=== PATIENT | female | born 1960 | race Caucasian/White ===

== ENCOUNTER → 2016-05-06 | Outpatient (CLI) | payer OTHER ==
[~2016-05-06] MED LIST: CALC1CAP36 PO; CALCTAB7 PO; EFF75 PO; EFFSR75 PO; ERGO1CAP35 PO; HYDR-5688 PO; LEVO175T3 PO; LEVO88TA PO; METO-478 PO; METO25TA3 PO; RIVA1TAB4 PO
== END | disposition home or self-care (01) ==
LOC: C.PATHSPEC 13:13
PROVIDERS: ATTEND Obstetrics & Gynecology
DX: N90.89 Other specified noninflammatory disorders of vulva and perineum (principal)

== ENCOUNTER → 2016-09-26 | Outpatient (CLI) | payer OTHER ==
[~2016-09-26] MED LIST changes: -EFF75 PO; -LEVO175T3 PO; -METO-478 PO; +METO1TAB31 PO; -METO25TA3 PO; -RIVA1TAB4 PO
[2016-09-26 17:18] LABS: THYROID STIMULATING HORMONE 1.32 uIu/ml (0.300-4.500)
== END | disposition home or self-care (01) ==
LOC: C.LABBC 12:38
PROVIDERS: ATTEND Internal Medicine Endocrinology, Diabetes & Metabolism
DX: E89.0 Postprocedural hypothyroidism (principal)

== ENCOUNTER → 2016-12-20 | Outpatient (CLI) | payer OTHER ==
[~2016-12-20] MED LIST changes: -CALC1CAP36 PO; -CALCTAB7 PO; +EFF75 PO; -EFFSR75 PO; -ERGO1CAP35 PO; -HYDR-5688 PO; +LEVO175T3 PO; -LEVO88TA PO; -METO1TAB31 PO; +METO25TA3 PO; +RIVA1TAB4 PO
[2016-12-20 13:23] LABS: HEMATOCRIT 38.8 % (37-47); MEAN CELL VOLUME 85.5 fL (80-100); MEAN CORPUSCULAR HEMOGLOBIN 27.3 pg (25-34); MEAN PLATELET VOLUME 9.7 fL (7.4-10.4); PLATELET COUNT 370 K/uL (130-400); RED BLOOD COUNT 4.54 M/uL (4.2-5.4); WHITE BLOOD COUNT 9.92 K/uL (4.8-10.8)
[2016-12-20 13:40] LABS: BLOOD UREA NITROGEN 11 mg/dl (7-18); CALCIUM 8.9 mg/dl (8.5-10.1); CARBON DIOXIDE 29 mmol/L (21-32); CHLORIDE 107 mmol/L (98-107); CREATININE 0.78 mg/dl (0.60-1.20); GLUCOSE 92 mg/dl (70-99); SODIUM 139 mmol/L (136-145)
[2016-12-20 13:50] LABS: THYROID STIMULATING HORMONE 0.061 uIu/ml (0.300-4.500)
[2016-12-21 13:45] LABS: THYROGLOBULIN 0.1 NG/ML (2.8-40.9)
== END | disposition home or self-care (01) ==
LOC: C.LABBC 10:27
PROVIDERS: ATTEND Internal Medicine Endocrinology, Diabetes & Metabolism
DX: C73 Malignant neoplasm of thyroid gland (principal); E89.0 Postprocedural hypothyroidism; I48.0 Paroxysmal atrial fibrillation

== ENCOUNTER → 2017-02-07 | Outpatient (CLI) | payer OTHER ==
[~2017-02-07] MED LIST changes: +FLEC50TA20 PO; +LEVO150T9 PO; +MEDR5TAB PO; +OXYC-57 PO
--- NOTE | 2017-02-11 13:38 | MAMMOGRAPHY REPORT ---
BILATERAL DIGITAL SCREENING MAMMOGRAM TOMOSYNTHESIS WITH CAD: 02/07/2017 CLINICAL HISTORY: Routine screening. Patient has no complaints. TECHNIQUE: Breast tomosynthesis in addition to standard 2D mammography was performed. Current study was also evaluated with a Computer Aided Detection (CAD) system. COMPARISON: Comparison is made to exams dated: 02/02/2016 mammogram, 01/30/2015 mammogram, 4 mammogram, 01/27/2013 mammogram, 10/16/2005 mammogram, and 09/28/2004 mammogram - [facility]. BREAST COMPOSITION: The tissue of both breasts is heterogeneously dense, which may obscure small mas ses. FINDINGS: No suspicious masses, calcifications, or areas of architectural distortion are noted in ei ther breast. There has been no significant interval change compared to prior exams. Circumscribed ma ss with an associated biopsy marker clip in the left 3:00 breast is stable. Benign-appearing left br east calcifications are not significantly changed. IMPRESSION: ACR BI-RADS CATEGORY 2: BENIGN There is no mammographic evidence of malignancy. A 1 year screening mammogram is recommended. The pa tient will receive written notification of the results. Approximately 10% of breast cancers are not detected with mammography. A negative mammographic report should not delay biopsy if a clinically suggestive mass is present. Loni Mcclellan M.D. /:02/07/2017 16:15:58 Charge Operator: Sarai REECE)(M), [facility] letter sent: Normal 1/2 BI-RADS Code: ACR BI-RADS Category 2: Benign
== END | disposition home or self-care (01) ==
LOC: C.MAMM 14:06
PROVIDERS: ATTEND Family Medicine
DX: Z12.31 Encounter for screening mammogram for malignant neoplasm of breast (principal)

== ENCOUNTER → 2017-03-20 | Outpatient (CLI) | payer OTHER ==
[~2017-03-20] MED LIST changes: -FLEC50TA20 PO; -LEVO150T9 PO; -MEDR5TAB PO; -OXYC-57 PO
== END | disposition home or self-care (01) ==
LOC: C.LAB1850 14:02
PROVIDERS: ATTEND Internal Medicine Endocrinology, Diabetes & Metabolism
DX: E89.0 Postprocedural hypothyroidism (principal)

== ENCOUNTER → 2017-03-20 | Outpatient (CLI) | payer OTHER | END | disposition home or self-care (01) | LOC: C.PATHSPEC 17:09 | PROVIDERS: ATTEND Obstetrics & Gynecology | DX: R93.8 Abnormal findings on diagnostic imaging of other specified body structures (principal) ==

== ENCOUNTER 2017-05-02 06:52 | Day surgery (SDC) | payer OTHER ==
[2017-04-25 13:53] VITALS: BMI 40.0
--- NOTE | 2017-04-25 14:28 | PAT Medication Instructions ---
Service Date Apr 25, 2017. Current Home Medication List Flecainide (Tambocor), 25 MG PO QAM Levothyroxine Sodium (Levothyroxine Sodium), 1 TAB PO every other day Levothyroxine Sodium (Levothyroxine Sodium), 1 TAB PO every other day Medroxyprogesterone (Provera), 5 MG PO BID Metoprolol Succ (Toprol Xl) (Toprol-Xl), 25 MG PO QAM Rivaroxaban (Xarelto), 20 MG PO QAM Venlafaxine Hcl (Effexor), 75 MG PO QAM Medication Instructions For Your Scheduled Surgery -Continue as directed: Levothyroxine Sodium (Levothyroxine Sodium), 1 TAB PO every other day Levothyroxine Sodium (Levothyroxine Sodium), 1 TAB PO every other day Rivaroxaban (Xarelto), 20 MG PO QAM (Currently D/C'd, further instructions per cardiology) - Take the following medications the morning of surgery with a sip of water: Flecainide (Tambocor), 25 MG PO QAM Medroxyprogesterone (Provera), 5 MG PO BID Metoprolol Succ (Toprol Xl) (Toprol-Xl), 25 MG PO QAM Venlafaxine Hcl (Effexor), 75 MG PO QAM - Take the following medications as scheduled the night before surgery: Medroxyprogesterone (Provera), 5 MG PO BID If you have any questions please call us at [phone] or [phone] or [phone]
[2017-04-25 15:00] LABS: BASO % 0.4 %; BASO ABS # 0.03 K/uL (0-0.2); EOS % 1.4 %; EOS ABS # 0.12 K/uL (0-0.5); HEMATOCRIT 33.1 % (37-47); HEMOGLOBIN 10.6 g/dL (12.0-16.0); IG# 0.02 K/uL (0.00-0.02); LYMPH % 31.8 %; LYMPH ABS # 2.65 K/uL (1.2-3.4); MEAN CELL VOLUME 81.3 fL (80-100); MONO ABS # 0.58 K/uL (0.11-0.59); NEUT % 59.2 %; NEUT ABS # 4.94 K/uL (1.4-6.5); PLATELET COUNT 394 K/uL (130-400); RED CELL DISTRIBUTION WIDTH CV 13.2 % (11.5-14.5); RED CELL DISTRIBUTION WIDTH SD 39.8 fL (36.4-46.3); WHITE BLOOD COUNT 8.34 K/uL (4.8-10.8)
[2017-04-25 16:33] LABS: CREATININE 0.81 mg/dl (0.60-1.20); POTASSIUM 3.9 mmol/L (3.5-5.1)
[~2017-05-02] VITALS: Ht 172.7 cm; Wt 119.3 kg
[~2017-05-02 06:52] MED LIST changes: +CEFAZOLIN 2000MG IV PUSH 15 ML IV SCH; +FLEC50TA20 PO; +LACTATED RINGER'S 1000ML 1,000 ML IV SCH; +LEVO150T9 PO; +MEDR5TAB PO
[2017-05-02 07:14] VITALS: BP 147/78; PULSE 63; TEMP 36.9; O2SAT 97; Ht 172.7 cm; Wt 119.3 kg
[2017-05-02] MEDS ORDERED: METHYLENE BLUE 0.5% 10 ML VIAL ONE (08:24)
[2017-05-02] MEDS ORDERED: GLYCOPYRROLATE INJ 0.2 MG/ML VIAL ONE ×3 (08:28→11:05)
[2017-05-02] MEDS ORDERED: LIDOCAINE HCL 2% 2 ML VIAL (20MG/ML) ONE (08:28)
[2017-05-02] MEDS ORDERED: DEXAMETHASONE SOD INJ 4 MG/ML VIAL ONE (08:28)
[2017-05-02] MEDS ORDERED: PROPOFOL IV EMULSION 10 MG/ML 20 ML VIAL IV ONE (08:28)
[2017-05-02] MEDS ORDERED: MIDAZOLAM HCL 1 MG/ML 2ML VIAL ONE (08:28)
[2017-05-02] MEDS ORDERED: FENTANYL CITRATE INJ 50 MCG/1 ML 2 ML VIAL ONE ×2 (08:28→11:08)
[2017-05-02] MEDS ORDERED: NEOSTIGMINE METHYLSULFATE 5 MG/5 ML SYR ONE (08:28)
[2017-05-02] MEDS ORDERED: ONDANSETRON INJ 2 MG/ML 2 ML VIAL ONE ×2 (08:28→10:09)
--- NOTE | 2017-05-02 08:52 | History & Physical Bridge Note ---
H&P Re-Evaluation Bridge Note: I have examined the patient, reviewed the History & Physical and in the interval since the performance of the History & Physical I have noted the following changes of clinical significance: No changes noted
--- NOTE | 2017-05-02 08:53 | Discharge Instructions ---
Discharge Instructions Date of Service May 02, 2017. Visit Reason for Visit: Thickened Endometrium, Abnormal Malou-Menopausal Bl Discharge Discharge Diagnosis / Problem: Hysterectomy Discharge Goals Goal(s): Specific goals Activity Recommendations Activity Limitations: per Instructions/Follow-up section Anesthesia . Post Anesthesia Instructions: If you have had General Anesthesia or IV Sedation: * Do not drive today. * Resume driving when surgeon permits. * Do not make important decisions or sign legal documents today. * Call surgeon for: 1. Temperature elevations greater than 101 degrees F. 2. Uncontrollable pain. 3. Excessive bleeding. 4. Persistent nausea and vomiting. 5. Medication intolerance (nausea, vomiting or rash). * For nausea and vomiting use only clear liquids such as: tea, soda, bouillon until nausea subsides, then gradually increase diet as tolerated. * If you have any concerns or questions, call your surgeon's office. If physician is unavailable and it is an emergency, call 911 or go to the nearest emergency room. . Instructions / Follow-Up Instructions / Follow-Up POST OPERATIVE: BOWEL FUNCTION/MEDICATIONS: 1. Constipation pain and discomfort are the most common complaints 5-7 days after surgery. Points 2-6 address the things that can help. 2. Chewing gum can help stimulate the gut and help improve digestion and motility. 3. Milk of Magnesia 1-2 times per day until return of bowel function. 4. Colace is a stool softener that helps. Taking this 2-3 times per day until bowel function returns to normal is highly recommended. 5. Dulcolax is a laxative that may be used if several days have passed without a bowel movement. Alternatively Miralax may be used daily instead. 6. Drink plenty of fluids as this will also reduce constipation. 7. Narcotic pain medications will be prescribed by your physician. They are safe to use and we encourage you to use them. If you are not allergic, ibuprofen will also be prescribed. Many patients will be able to transition off of the narcotic medications to ibuprofen by postoperative day 3. ACTIVITY RECOMMENDATIONS: 1. Get plenty of rest and listen to your body. If you are tired, take a nap. 2. You may shower, but do not take a tub bath until you see your doctor at the 2 week post operative visit. 3. Absolutely NO intercourse and nothing in the vagina until you are examined by your doctor at the 6 week visit. At that visit it will be determined when such activities can be resumed. This can range from 6-12 weeks after your surgery depending on healing time. 4. The main physical activity in the first week should be walking. By the second week you can slowly increase activity. There are no limits on walking up and down stairs. 5. Do not lift more than 5-10 lbs for 4 weeks. Remember the "one-handed rule", i.e. if you can lift something with only one hand it's likely okay. 6. Minimize roll table operator like vacuuming and exercising for 4 weeks. "Overdoing it" can lead to incisions not healing, pain and vaginal bleeding , so again, listen to your body. 7. Driving can be resumed when you feel able. Do not drive within 24 hours of taking a narcotic medication. EXPECTATIONS: 1. Vaginal spotting, bleeding and discharge are common after surgery. There may even be an odor to the discharge which is often related to sutures used in the vagina. If you experience heavy vaginal bleeding, call the office number day or night [phone]. 2. Bladder discomfort is common after surgery from the catheter. This usually resolves in 1-2 weeks. 3. By the end of the 3rd or 4th week you should be feeling much better. It may take up to 6 weeks for your energy levels to return to normal. 4. Narcotic medications have side effects such as: dizziness, headache, nausea and/or vomiting. If you suspect your pain medication is causing problems, call our office and we may be able to prescribe an alternate medication. 5. The skin incisions are often covered with a liquid bandage. This will gradually peel off over time. CALL THE OFFICE IF YOU HAVE ANY OF THE FOLLOWIN. Temperature of 101 degrees or higher. 2. Severe abdominal or pelvic pain not relieved by pain medication. 3. Persistent nausea or vomiting. 4. Increased pain with urination or difficulty urinating. 5. Bright red bleeding that soaks more than 1 pad per hour. CONTACT PHONE NUMBERS: Main Office: [phone] Surgical Nurse: [phone] extension [phone] FOLLOW-UP: Post-Operative Appointments: * Individual instructions will have been given about the timing of your first examination, but this is usually at the end of the second week home. * You will need to call the office at soon after discharge to make the appointment for your post-op check-up if it has not already been scheduled. * Additional information regarding activity, sexual intercourse and when to return to work will be given at this appointment. WE WISH YOU A SPEEDY RECOVERY! Diet Recommendations Recommended Home Diet: resume previous diet Pending Studies Studies pending at discharge: no Medical Emergencies . Who to Call and When: Medical Emergencies: If at any time you feel your situation is an emergency, please call 911 immediately. . Non-Emergent Contact Non-Emergency issues call your: Primary Care Provider . . "Provider Documentation" section prepared by Maribel Lou. . [place] Drug Monitoring Program Search Results: no issues identified
[2017-05-02] MEDS ORDERED: HYDROmorphone INJ 1 MG/ML SYR IV PRN (09:15)
[2017-05-02] MEDS ORDERED: ONDANSETRON INJ 2 MG/ML 2 ML VIAL IV PRN ×2 (09:15→12:00)
[2017-05-02] MEDS ORDERED: EpHEDrine SULFATE INJ 50 MG/ML AMP IV PRN (09:15)
[2017-05-02] MEDS ORDERED: ATROPINE SULFATE 0.1 MG/ML 5ML SYR IV PRN (09:15)
[2017-05-02] MEDS ORDERED: FENTANYL CITRATE INJ 50 MCG/1 ML 2 ML VIAL IV PRN (09:15)
[2017-05-02] MEDS ORDERED: EpHEDrine SULFATE 50MG/5ML SYR ONE (10:09)
[2017-05-02] MEDS ORDERED: PHENYLEPHRINE 100MCG/ML 5ML SYR ONE (10:09)
[2017-05-02] MEDS ORDERED: KETOROLAC TROMETHAMINE 30 MG/ML VIAL ONE (10:14)
--- NOTE | 2017-05-02 11:25 | [facility] Operative Report ---
Operative Report Operative Date May 02, 2017. Pre-Operative Diagnosis Thickened Endometrium, Abnormal Malou-Menopausal Bleeding Post-Operative Diagnosis Same as preop Procedure(s) Performed Total Laparoscopic Hysterectomy Bilateral Salpingectomy Robot Assist; Cystoscopy Surgeon Dr. Lou Recruiter Coordinator Surgeon(s) none Estimated Blood Loss 30 mL Specimens A. Cervix, Uterus, Bilateral Fallopian Tubes Drains None Anesthesia Type General Complication(s) none Disposition no Recovery Room / PACU Description of Procedure Antonia was placed on the operating table in the dorsal lithotomy position with yellowfin stirrups prepped and draped in standard sterile fashion a hard timeout was taken prior to proceeding. The VK uterine manipulator and Jernigan catheter replaced in the usual manner. Attention was turned to the abdomen where entry was made in an umbilical direct optical manner without complication. The abdomen was then insufflated and the patient was placed in steep turnabout [place]. Under direct visualization right and left lower quadrant ports were placed. Visualization of the pelvic organs revealed a grossly normal uterus tubes and ovaries, with significant fatty deposits in the peritoneum and significant pericolonic fat making it difficult to mobilize the bowel out of the pelvis. The robot was then docked in a seated at the console. First the instruments were used to gently sweep the bowel out of the pelvis to the best of my ability. Uterus then elevated and dissection proceeded freeing the right fallopian tube from the mesosalpinx. We then ligated and divided the right utero-ovarian beginnings of a bladder flap were created from the right side. We then turned attention to the left side where the left fallopian tube and divided. The bladder flap was then created and completed from the left side, with skeletonization of the posterior broad leaflet as well. The uterine artery on the right was then ligated and divided and then the uterine artery on the left was ligated usual manner. The cervix uterus and fallopian tubes were delivered via the vagina appear size of the uterus made this very difficult, so I gowned and gloved and through a vaginal approach, used a long handled 11 blade knife to core the cervix and lower uterine segment , elongating the uterus and allowing it to be once the sample was removed, a decreased glove was placed in the vagina to hold I then regowned and restart at the consult. A Horace suture cut was placed in arm 1 and the V lock suture was passed vaginally I placed the initial suture at the right vaginal angle, however unfortunately during the securing of the stitch the suture broke. Therefore a ring forcep was introduced vaginally and used to bring in a new V lock suture, and retrieve the old including the needle. The second suture was then used to close the entire cuff from the right angle across to the left in a running nonlocked manner. Approximately three [address] towards the left side, a deliberate suture was placed through the left uterosacral ligament approximately 1 cm above the vaginal cuff, suspending the cuff from the left uterosacral ligament. Although both uterosacral ligaments were incorporated into the cuff, the suture on the left provides the significant traction which I feel will help suspend her cuff given her history of vaginal prolapse and repair. At the completion of cuff closure the V lock was secured with the usual back stitches. After methylene blue dye was administered cystoscopy was then performed which showed a strong blue stain jet of dye from each ureteral orifice. The bladder was then drained. Closure then proceeded with removal of gas from the abdomen followed by removal of the trochars, followed by basement of a UR 6 suture at the fascial layer near the umbilicus. All 3 ports were then closed with Monocryl, and dressed with Dermabond. At the completion of the procedure vaginal exam was was noted to be firmly closed there was no escaping air the bladder was empty no Jernigan was in place and the patient was transferred in stable condition to the recovery. I attest to the content of the Intraoperative Record and any orders documented therein. Any exceptions are noted below.
[2017-05-02] MEDS ORDERED: LARYING-O-JET KIT (LTA) ONE (11:43)
[2017-05-02] MEDS ORDERED: SIMETHICONE 80 MG CHEW PO PRN (12:00)
[2017-05-02] MEDS ORDERED: ACETAMINOPHEN 325 MG TAB PO PRN (12:00)
[2017-05-02] MEDS ORDERED: IBUPROFEN 600 MG TAB PO PRN (12:00)
[2017-05-02] MEDS ORDERED: MEPERIDINE HCL 50 MG/ML CARP IV PRN ×2 (12:00)
[2017-05-02] MEDS ORDERED: OXYCODONE/ACETAMINOPHEN 5-325 TAB PO PRN ×2 (12:00)
[2017-05-02] MEDS ORDERED: KETOROLAC TROMETHAMINE 30 MG/ML VIAL IV. PRN (12:00)
--- NOTE | 2017-05-02 12:02 | Anesthesiology Progress Note ---
Anesthesia Post Op Note Date & Time May 02, 2017 at 12:02 Vital Signs Pain Intensity: 2 Vital Signs Past 12 Hours Date Time Temp Pulse Resp B/P (MAP) Pulse Ox O2 Delivery O2 Flow Rate FiO2 05/02/17 11:55 59 18 112/60 94 Nasal Cannula 2 05/02/17 11:45 64 14 116/60 100 Oxymask 10 05/02/17 11:35 60 24 115/57 100 Oxymask 10 05/02/17 11:25 36.5 75 19 124/61 98 Oxymask 10 05/02/17 07:14 36.9 63 18 147/78 (101) 97 Room Air Notes Mental Status: alert / awake / arousable, participated in evaluation Pt Amnestic to Procedure: Yes Nausea / Vomiting: improving with treatment Pain: adequately controlled Airway Patency, RR, SpO2: stable & adequate BP & HR: stable & adequate Hydration State: stable & adequate Anesthetic Complications: no major complications apparent
[2017-05-02 12:30] VITALS: BP 100/50; PULSE 61; TEMP 36.7; O2SAT 98
[2017-05-02] MEDS ORDERED: ROCURONIUM BROMIDE 10 MG/ML 5 ML VIAL IV ONE (12:50)
[2017-05-02 13:00] VITALS: BP 114/63; PULSE 58; TEMP 36.7; O2SAT 98
[2017-05-02] MEDS ORDERED: LACTATED RINGER'S 1000ML 1,000 ML IV SCH (13:00)
[2017-05-02 13:13] LABS: HEMATOCRIT 33.4 % (37-47); HEMOGLOBIN 10.9 g/dL (12.0-16.0)
[2017-05-02 14:00] VITALS: BP 129/73; PULSE 65; TEMP 36.4; O2SAT 98
[2017-05-02 15:20] VITALS: BP 137/75; PULSE 62; TEMP 36.6; O2SAT 98
[2017-05-02] MEDS ORDERED: IV FLUIDS COMPLETED PRN (16:15)
[2017-05-02] MEDS ORDERED: OXYC-57 PO (17:31)
--- NOTE | 2017-05-02 17:35 | Progress Note ---
Progress Note Date of Service May 02, 2017. Progress Note I am on-call OBGYN physician. Dr Lou called, she has already left the building but had misadvertently forgotten to sign Rx for patient's percocet prescription. Since I am in-house, she asked me to give pt the script for medication - she planned for 15 tabs. I checked [place] PDMP - no record of patient found.
[2017-05-02 18:28] VITALS: BP 137/75; PULSE 62; TEMP 36.6; O2SAT 98
[2017-05-02] MEDS ORDERED: DOCUSATE SODIUM 100 MG CAP PO SCH (21:00)
--- NOTE | 2017-05-08 09:22 | Discharge Summary ---
Discharge Summary Date of Service May 08, 2017. Discharge Summary Admission Date: May 02, 2017 at 07:00 Discharge Date: May 02, 2017 Discharge Disposition: Home Principal Diagnosis: Hysterectomy Immunizations: Have You Had Influenza Vaccine: Unknown History of Tetanus Vaccine?: Unknown History of Pneumococcal: Unknown History of Hepatitis B Vaccine: Unknown Medication Reconciliation New Medications: Oxycodone/Acetaminophen 5MG/325MG (Percocet 5MG/325MG) Tab 1-2 TABLETS PO Q6 PRN for Pain for 7 Days, #15 TAB Continued Medications: Flecainide (Tambocor) 50 Mg Tab 50 MG PO BID, TAB Levothyroxine Sodium (Levothyroxine Sodium) 175 Mcg Tab 1 TAB PO every other day , TAB takes every other day in am Levothyroxine Sodium (Levothyroxine Sodium) 150 Mcg Tab 1 TAB PO every other day for 90 Days, TAB 3 Refills takes every other day in the am (rotates one day 175 mcg and the next day 150 mcg) Metoprolol Succ (Toprol Xl) (Toprol-Xl) 25 Mg Tabcr 25 MG PO QAM, TAB Venlafaxine Hcl (Effexor) 75 Mg Tab 75 MG PO QAM, TAB Discontinued Medications: Medroxyprogesterone (Provera) 5 Mg Tab 5 MG PO BID, TAB Rivaroxaban (Xarelto) 20 Mg Tab 20 MG PO QAM, TAB pt has been off this for about a month (per cardio recommendation) - possibility to re start following surgery Hospital Course Total Time Spent: Less than 30 minutes This includes examination of the patient, discharge planning, medication reconciliation, and communication with other providers. Discharge Instructions Please refer to the electronic Patient Visit Report (Discharge Instructions) for additional information.
== END 2017-05-02 19:35 | disposition home or self-care (01) ==
LOC: C.ACU 06:52 → C.MS4N 07:00 → ENRESERV 12:16
PROVIDERS: ADMIT Obstetrics & Gynecology; ATTEND Obstetrics & Gynecology
DX: N92.4 Excessive bleeding in the premenopausal period (principal); D25.1 Intramural leiomyoma of uterus; N80.0 Endometriosis of uterus; E03.9 Hypothyroidism, unspecified; D64.9 Anemia, unspecified; I10 Essential (primary) hypertension; E89.0 Postprocedural hypothyroidism; F41.9 Anxiety disorder, unspecified; I48.0 Paroxysmal atrial fibrillation; E66.01 Morbid (severe) obesity due to excess calories; Z82.41 Family history of sudden cardiac death; Z82.49 Family history of ischemic heart disease and other diseases of the circulatory system; Z82.3 Family history of stroke; Z79.01 Long term (current) use of anticoagulants; Z85.850 Personal history of malignant neoplasm of thyroid
CPT/HCPCS: 58571; S2900

== ENCOUNTER → 2017-09-05 | Outpatient (CLI) | payer OTHER ==
[~2017-09-05] MED LIST changes: -CEFAZOLIN 2000MG IV PUSH 15 ML IV SCH; -LACTATED RINGER'S 1000ML 1,000 ML IV SCH; -MEDR5TAB PO; -RIVA1TAB4 PO
[2017-09-05 12:23] LABS: HEMATOCRIT 40.7 % (37-47); HEMOGLOBIN 12.8 g/dL (12.0-16.0); MEAN CELL VOLUME 80.8 fL (80-100); MEAN CORPUSCULAR HEMOGLOBIN 25.4 pg (25-34); MEAN CORPUSCULAR HGB CONC 31.4 g/dl (32-36); MEAN PLATELET VOLUME 9.8 fL (7.4-10.4); PLATELET COUNT 374 K/uL (130-400); RED CELL DISTRIBUTION WIDTH CV 15.8 % (11.5-14.5); RED CELL DISTRIBUTION WIDTH SD 46.3 fL (36.4-46.3); WHITE BLOOD COUNT 8.11 K/uL (4.8-10.8)
[2017-09-05 12:54] LABS: BLOOD UREA NITROGEN 12 mg/dl (7-18); CALCIUM 9.1 mg/dl (8.5-10.1); CARBON DIOXIDE 26 mmol/L (21-32); CREATININE 0.84 mg/dl (0.60-1.20); GLUCOSE 90 mg/dl (70-99); SODIUM 139 mmol/L (136-145)
== END | disposition home or self-care (01) ==
LOC: C.LABBFT 08:40
PROVIDERS: ATTEND Internal Medicine Endocrinology, Diabetes & Metabolism
DX: I48.0 Paroxysmal atrial fibrillation (principal); E89.0 Postprocedural hypothyroidism

== ENCOUNTER 2023-03-03 08:19 | Observation (INO) ==
--- NOTE | 2023-01-29 10:14 | PAT Medication Instructions ---
Medication Instructions Date of Service January 29, 2023 Home Medications Medication Instructions Recorded estradiol 10 mcg vaginal tablet 10 mcg vaginal 2XWK #24 tabs 02/25/22 (Yuvafem) flecainide 50 mg tablet 50 mg PO Q12H #180 tabs 02/25/22 metoprolol succinate 25 mg 25 mg PO QAM #90 tabs 02/25/22 tablet,extended release 24 hr rivaroxaban 20 mg tablet (Xarelto) 20 mg PO QAM #90 tabs 02/25/22 venlafaxine 75 mg tablet 75 mg PO QAM levothyroxine 150 mcg tablet 150 mcg PO 4XWK levothyroxine 175 mcg tablet 175 mcg PO 3XWK venlafaxine 37.5 mg capsule,extended release 24 hr 37.5 mg PO QAM estradiol 10 mcg vaginal tablet (Yuvafem) 10 mcg vaginal 2XWK flecainide 50 mg tablet 50 mg PO Q12H metoprolol succinate 25 mg tablet,extended release 24 hr 25 mg PO QAM rivaroxaban 20 mg tablet (Xarelto) 20 mg PO QAM valsartan 40 mg tablet 40 mg PO QAM ASK your prescriber and surgeon rivaroxaban 20 mg tablet (Xarelto) 20 mg PO QAM (From anesthesia perspective, Rivaroxaban/Xarelto needs to be stopped 72 hours before surgery. Please check if okay with doctor that prescribes this to you) STOP taking 24 hours before surgery estradiol 10 mcg vaginal tablet (Yuvafem) 10 mcg vaginal 2XWK DO NOT take the morning of surgery valsartan 40 mg tablet 40 mg PO QAM Take morning of surgery With a small sip of water, OTHERWISE NOTHING TO EAT OR DRINK AFTER MIDNIGHT: venlafaxine 75 mg tablet 75 mg PO QAM levothyroxine venlafaxine 37.5 mg capsule,extended release 24 hr 37.5 mg PO QAM flecainide 50 mg tablet 50 mg PO Q12H metoprolol succinate 25 mg tablet,extended release 24 hr 25 mg PO QAM Take evening before surgery flecainide 50 mg tablet 50 mg PO Q12H Other Notes If you have any questions please call us at [phone] or [phone] or [phone] or [phone]
--- NOTE | 2023-02-06 09:03 | Anesthesiology Consultation ---
Date of Service February 06, 2023 Assessment & Plan (1) Encounter for pre-operative examination: Chart Review Chart Review: Acceptable Risk for Surgery (pending signed cardio note from 01/15/23 and DOS coags ) and Patient seen in Pre Admission Testing - Awaiting signed cardio note from 01/15/23 ([place]) - Check coags AM DOS Pt currently scheduled as 23 hours observation. If surgeon decides to change patient to Same Day Joint, patient would be acceptable risk for TKA, pending patient is motivated, has good support and surgeon's office completes Same Day Joint Program preop requirements. Per PAT appt on 02/06/23, no recent illness/disease exposures or recent illness/disease positive tests. Ongoing mild residual cough since mid Dec 2022. Slowly improving/no new symptoms or acute issues. Will leave to surgeon's discretion if preop Covid testing needed Teaching & Discussion Pre-Anesthesia Teaching/Discussion Notes: Instructed NPO after midnight before surgery,except medications with 15 cc of water. Medication instructions provided according to the PAT guidelines. History Surgery Operation Date: 03/03/23 09:45 Proposed Procedures p Right Total Knee Arthroplasty - Allen Ray, Height/Weight Height: 5 ft 9 in Weight: 123.5 kg Allergies Allergy/AdvReac Type Severity Reaction Status Date / Time No Known Allergies Allergy Verified 01/29/23 07:44 Medications Home Medications Medication Instructions Recorded Confirmed Last Taken venlafaxine 75 mg tablet 75 mg PO QAM 07/16/19 01/29/23 12/25/22 levothyroxine 150 mcg tablet 150 mcg PO 4XWK 04/13/20 01/29/23 12/26/22 levothyroxine 175 mcg tablet 175 mcg PO 3XWK 04/13/20 01/29/23 12/25/22 venlafaxine 37.5 mg 37.5 mg PO QAM 12/05/21 01/29/23 12/25/22 capsule,extended release 24 hr estradiol 10 mcg vaginal tablet 10 mcg vaginal 2XWK #24 tabs 02/25/22 01/29/23 Unknown (Yuvafem) flecainide 50 mg tablet 50 mg PO Q12H #180 tabs 02/25/22 01/29/23 12/26/22 metoprolol succinate 25 mg 25 mg PO QAM #90 tabs 02/25/22 01/29/23 12/26/22 tablet,extended release 24 hr rivaroxaban 20 mg tablet (Xarelto) 20 mg PO QAM #90 tabs 02/25/22 01/29/23 12/26/22 valsartan 40 mg tablet 40 mg PO QAM 01/29/23 01/29/23 Unknown Past Medical History Medical History Cough lingering cough and voice hoarseness from viral illness 12/2022- slowly improving (did have Amoxicillin and Augmentin) History of COVID-19 03/2020- no hosp; resolved Sensorineural hearing loss of both ears Hypothyroidism Anxiety and depression Paroxysmal A-fib controlled w/ meds- follows w/ Dr Solano on Xarelto Thyroid cancer S/P total thyroidectomy- no chemo or XRT Hypertension Exercise / Class Metabolic Activity II 4-5 Yardwork/Stairs/Walk up hill (one flight of stairs - no chest pain or SOB ) Past Family History Family History Father Atrial fibrillation Other No family history of adverse response to anesthesia Past Surgical History Surgical History History of arthroscopy LEFT SHOULDER History of colonoscopy [place] teeth removed History of thyroidectomy, total Hx of abdominal surgery PELVIC FLOOR RECONSTRUCTION H/O: hysterectomy Past Anesthesia History No Hx of Anesthesia Complications and No Family Hx of Anesthesia Complications History of PONV No Hx of PONV and No Hx of Motion Sickness Social History Smoking Status: Never smoker Do You Dip or Chew Tobacco: No Hx Alcohol Use: No Hx Substance Use: No substance use type: does not use Review of Systems - Hx of sleep study- no CATHY Patient denies chest pain, shortness of breath, dyspnea on exertion, reflux, wheezing, palpitations. No hx of seizures, stroke, OR. No hx of blood clots or blood transfusions Physical Exam Vital Signs VITALS BP 147/93 P 65 TEMP 98.1 SP02 94% RESP 16 Constitutional no acute distress ENMT Mouth: no TMJ clicking Thyromental Distance: > or= 3.5 Finger Breadths (4.0) Mallampati Class: II Crowns to side teeth Neck neck extension not limited Respiratory normal respiratory effort; no respiratory distress Auscultation: lungs clear to auscultation bilaterally; no wheezes Cardiovascular Rate/Rhythm: regular rate and regular rhythm Heart Sounds: no murmur Vessels: no carotid bruit Musculoskeletal Spine: no pain with cervical ROM Extremities: extremities normal to inspection Psychiatric Orientation: alert Lab Results Anesthesia Preop Results Results Anesthesia Widget: WBC 8.88 K/ul (4.8-10.8) 02/06/23 Hgb 14.0 g/dl (12.0-16.0) 02/06/23 Hct 43.3 % (37.0-47.0) 02/06/23 Plt 430 K/uL (130-400) H 02/06/23 Na 138 mmol/L (136-145) 02/06/23 K 4.1 mmol/L (3.5-5.1) 02/06/23 Cl 105 mmol/L (98-107) 02/06/23 CO2 26 mmol/L (21-32) 02/06/23 BUN 10 mg/dl (6-23) 02/06/23 Creat 0.79 mg/dl (0.6-1.2) 02/06/23 Glucose Level 97 mg/dl (70-99(Fasting)) 02/06/23 PT 15.3 Seconds (9.0-12.0) H 02/06/23 PTT 43 Seconds (21-31) H 02/06/23 INR 1.4 (0.9-1.1) H 02/06/23 Blood Type O Positive 02/06/23 Antibody Screen NEGATIVE 02/06/23 Testing Laboratory Results Elevated coags- on Xarelto- discussed with Dr. Lacey- will recheck DOS; surgeon's office informed Electrocardiogram Date: 02/06/23 Findings: + SB @ (59bpm) Incomplete RBBB Chest X-Ray Date: 12/25/22 Findings: + NAD FINDINGS: Lung volumes are normal. Lungs are clear. There is no pneumothorax or pleural effusion. There is mild cardiomegaly. Mediastinal contours are normal. There is no evidence for pulmonary edema. Echocardiogram Date: 01/26/18 EF: 60-65% LV Function: normal RWMA: + none Valvular Disease: + no significant valvular disease Left atrium is mildly dilated. RV systolic function borderline reduced. Other Testing Soft Tissue Neck CT 01/29/23= Resolution of left cervical lymphadenopathy and associated inflammation shown on prior CT. No suspicious cervical lymph nodes. No abnormality within the thyroidectomy bed. Periapical lucency/abscess of the left second maxillary molar with associated mild mucosal thickening of the left maxillary sinus. This could be correlated with dental pain. (Patient had dental exam/cleaning same day of CT with no issues- patient with no dental pain, swelling or discharge; surgeon's office made aware)
--- NOTE | 2023-02-27 07:54 | History & Physical Report ---
Date of Service February 27, 2023 Assessment & Plan (1) Osteoarthritis of right knee: We will proceed with a right total knee arthroplasty. Postoperatively she will be started on Xarelto and kept overnight in the hospital for postop medical management. She plans to use home fit for play upon discharge. History of Present Illness Chief Complaint: Osteoarthritis of the right knee. Primary Care Provider: Walt Verde DO Lazara is a pleasant 62-year-old female who has been dealing with chronic increasing right knee pain. X-rays and clinical examination have been diagnostic for arthritis in the knee and patellofemoral arthritis. She has received years of cortisone injections and viscosupplementation from my partners. She continues to have a lot of pain. She has trouble going up and down stairs. Most of her pain is located anteriorly. I have sent her for an MRI. The MRI does show tricompartmental arthritis. After failing conservative treatment, she has elected proceed with a right total knee arthroplasty. Allergies Allergy/AdvReac Type Severity Reaction Status Date / Time No Known Allergies Allergy Verified 02/21/23 09:44 Home Medications Medication Instructions Recorded Confirmed Type venlafaxine 75 mg tablet 75 mg PO QAM 07/16/19 02/21/23 History levothyroxine 150 mcg tablet 150 mcg PO 4XWK 04/13/20 02/21/23 History levothyroxine 175 mcg tablet 175 mcg PO 3XWK 04/13/20 02/21/23 History venlafaxine 37.5 mg 37.5 mg PO QAM 12/05/21 02/21/23 History capsule,extended release 24 hr valsartan 80 mg tablet 80 mg PO QAM 02/11/23 02/21/23 History estradiol 10 mcg vaginal tablet 10 mcg vaginal 2XWK #24 tabs 02/21/23 02/21/23 Rx (Yuvafem) flecainide 50 mg tablet 50 mg PO Q12H #180 tabs 02/24/23 Rx metoprolol succinate 25 mg 25 mg PO QAM #90 tabs 02/24/23 Rx tablet,extended release 24 hr rivaroxaban 20 mg tablet (Xarelto) 20 mg PO QAM #90 tabs 02/24/23 Rx Past Med/Surg History Medical History Cough lingering cough and voice hoarseness from viral illness 12/2022- slowly improving (did have Amoxicillin and Augmentin) History of COVID-19 03/2020- no hosp; resolved Sensorineural hearing loss of both ears Hypothyroidism Anxiety and depression Paroxysmal A-fib controlled w/ meds- follows w/ Dr Solano on Xarelto Thyroid cancer S/P total thyroidectomy- no chemo or XRT Hypertension Surgical History History of arthroscopy LEFT SHOULDER History of colonoscopy [place] teeth removed History of thyroidectomy, total Hx of abdominal surgery PELVIC FLOOR RECONSTRUCTION H/O: hysterectomy Family History Father Atrial fibrillation Other No family history of adverse response to anesthesia Denies family history of Ovarian cancer Prostate cancer Myocardial infarction Breast cancer Colorectal cancer Social History Smoking Status: Never smoker Second Hand Exposure: No; Do You Dip or Chew Tobacco: No; Hx Alcohol Use: No Hx Substance Use: No Preferred Language: Sinhala Communication Ability: Effective Side Piece Coverer Required: No Beliefs That Will Affect Care: None Current Living Situation: Spouse Feels Safe at Home: Yes Assistive Devices: Glasses Review of Systems All systems reviewed & are unremarkable except as noted in HPI & below. Physical Exam On physical examination the right knee, she has slight varus deformity. She has tenderness palpation of the distal medial femoral condyle and over the medial joint line.. Constitutional WD/WN, vitals as above Eyes PERRL, conjunctivae normal, anicteric sclerae ENMT external ear and nose normal, oropharynx normal Neck trachea midline, no thyromegaly Respiratory normal respiratory effort Cardiovascular RRR, no murmur, no edema Gastrointestinal (Abdomen) normal bowel sounds, soft, nontender, no hepatosplenomegaly Psychiatric A+Ox3, euthymic affect Results & Data Results & Data Laboratory Results . Diagnostic Findings X-rays of the right knee do show joint space narrowing osteophyte formation and near [id number] tubulation MRI of the right knee shows tricompartmental arthritis with some bony edema.. PG Care Time/CCT Total # of Minutes Spent Total Time Spent with Patient: Total time spent is greater than 50% in coordination of care (as documented) at patient's floor/unit and/or counseling patient: Coding Level of Care Code None Diagnoses Osteoarthritis of right knee M17.11
[~2023-03-03 08:19] MED LIST changes: +ACETAMINOPHEN 500 MG TAB PO SCH; -EFF75 PO; +FAMOTIDINE 20 MG TAB PO SCH; -FLEC50TA20 PO; +GABAPENTIN 600 MG DOSE PO SCH; -LEVO150T9 PO; -LEVO175T3 PO; +LR 500ML BOLUS, THEN 15ML/HR IV SCH; +LR 60ML/HR IV SCH; -METO25TA3 PO; +ROPIV 0.5% 246mg, Ketorolac 30mg, EPINEPHrine 0.5mg in NSS INFIL SCH; +ROPIVACAINE 0.5% 5 MG/ML 30 ML VIAL ONE; +TRANEXAMIC ACID 1,000 MG **IV Intra-op IV SCH; +TRANEXAMIC ACID 1,000 MG **IV Pre-op IV SCH; +dexAMETHasone**PF** 10 MG/ML VIAL IV SCH
[2023-03-03] MEDS ORDERED: fentaNYL citrate PF 100 MCG/2 ML VIAL ONE (08:44)
[2023-03-03] MEDS ORDERED: MIDAZOLAM HCL 1 MG/ML 2ML VIAL ONE (08:44)
[2023-03-03 09:19] LABS: INR 1.1 (0.9-1.1); Partial Thromboplastin Ratio 1.1; Partial Thromboplastin Time 32 Seconds (21-31); Prothrombin Time 11.7 Seconds (9.0-12.0)
[2023-03-03] MEDS ORDERED: ONDANSETRON INJ 2 MG/ML 2 ML VIAL IV PRN ×2 (09:23→13:19)
[2023-03-03] MEDS ORDERED: ePHEDrine sulfate 50 MG/ML AMP IV PRN (09:23)
[2023-03-03] MEDS ORDERED: ATROPINE SULFATE 0.1 MG/ML 10ML SYR IV PRN (09:23)
[2023-03-03] MEDS ORDERED: HYDROmorphone INJ 1 MG/ML SYRINGE IV PRN (09:23)
--- OUTSIDE RECORDS SUMMARY | 2023-03-03 09:42 | External Medical Summary | Continuity of Care Document ---
Author Name Unknown Organization [facility] [address] [address] [place] [id number] Care Team Providers Care Community Representative Name Role Phone Walt Verde Primary Care Physician [phone] Encounter [facility] [id number] Date(s): 02/19/23 - 02/19/23 [facility] [address] Medical [facility] [address] [address] [phone] Encounter Diagnosis Well adult exam(Discharge Diagnosis) - 02/19/23 Discharge Disposition: Home or Self Care Attending Physician: DO Verde Franklin J Allergies, Adverse Reactions, Alerts No Known Allergies Assessment and Plan Extracted from: Title:General Exam * Author:DO Verde Franklin J Date:02/19/23 Impression and Plan Diagnosis Well adult exam (QFB50-BD Z00.00, Discharge, Medical). Plan: Well Adult Exam Cancer Screenings Colonoscopy up-to-date Mammography scheduled Metabolic Screenings Basic metabolic profile, lipid profile completed cardiology TSH noted; clinically and biochemically euthyroid Preserved renal function and normal serum potassium noted on current dose of valsartan Immunizations She has had seasonal flu vaccine Recommend RSV vaccination at pharmacy Prevnar at age 67 Tdap in 2030 Follow-up: Since she sees cardiology every 6 months, her blood pressure can be checked there. As such, we will see her back in 1 year or as needed . Orders PowerOrders Patient Care Ambulatory: Follow Up Appointment Ambulatory (Order): In 1 Year, Appointment Type In Office, Follow up With DO Verde Franklin J. Immunizations Given and Recorded Vaccine Date Status Refusal Reason influenza virus vaccine, inactivated 10/11/20 Home rded tetanus/diphtheria/pertuss, acel (Tdap) 1 05/13/18 Recorded zoster vaccine, inactivated 2 09/06/17 Recorded zoster vaccine, inactivated 05/30/17 Recorded 1Result Comment: 2018-05-29: Historical information-source unspecified 2Result Comment: 2018-05-29: Historical information-source unspecified Medications estradiol 0.05 mg/24 hr vaginal ring Start: 12/12/21 9:54:00 EDT Start Date: 12/12/21 Status: Ordered flecainide 50 mg oral tablet Start: 05/26/17 11:18:00 EDT, 1 tab, PO, q12h Start Date: 05/26/17 Status: Ordered Flexeril 10 mg oral tablet Start: 04/06/21 16:19:00 EST, 1 tab, PO, tid, Disp# 30 tab, Refills: 0, PRN: as needed for spasm, Pharmacy: [facility]/pharmacy #[id number] Start Date: 04/06/21 Stop Date: 04/16/21 Status: Ordered levothyroxine 150 mcg (0.15 mg) oral tablet Start: 01/06/23 13:06:00 EST, 1 tab, PO, Daily, Disp# 16 tab, Refills: 3, WEEK., Pharmacy: [id number] Start Date: 01/06/23 Status: Ordered levothyroxine 175 mcg (0.175 mg) oral capsule Start: 02/19/23 15:47:00 EST Start Date: 02/19/23 Status: Ordered Metoprolol Succinate ER 25 mg oral tablet, extended release Start: 07/16/13 11:42:19, See Instructions, Disp# 30, TAKE ONE TABLET BY MOUTH ONE TIME DAILY, Pharmacy: [facility] #[id number], TAKE ONE TABLET BY MOUTH ONE TIME DAILY Start Date: 07/16/13 Status: Ordered valsartan 80 mg oral tablet Start: 02/13/23 13:31:00 EST, 1 tab, PO, Daily, Disp# 30 tab, Refills: 1, Pharmacy: [facility] Start Date: 02/13/23 Stop Date: 04/14/23 Status: Ordered venlafaxine 37.5 mg oral capsule, extended release Start: 02/17/23 11:27:00 EST, 1 cap, PO, Daily, Disp# 90 cap, Refills: 3, Pharmacy: [facility] Start Date: 02/17/23 Status: Ordered venlafaxine 75 mg oral capsule, extended release Start: 02/17/23 11:27:00 EST, 1 cap, PO, Daily, Disp# 90 cap, Refills: 3, Pharmacy: [facility] Start Date: 02/17/23 Status: Ordered Xarelto 20 mg oral tablet Start: 05/29/18 15:33:00 EDT, daily Start Date: 05/29/18 Status: Ordered Mental Status 02/19/23 Barriers to Learning one year None evide nt Mandatory Health Literacy Documentation Yes Health Literacy Communication Barriers N ever Primary Language Upper Sorbian Problem List Condition Confirmation Course Effective Dates Status H ealth Status Informant HTN (hypertension) Confirmed Active Hypothyroidism Confirmed Active PAF (paroxysmal atrial fibrillation) Confirmed Active Weight disorder Confirmed Active Diagnosis Diagnosis Type Effective Dates Health Status Cl inical Service Informant Well adult exam Discharge Diagnosis 02/19/23 Non-Specified Procedures Procedure Date Related Diagnosis Body Site Status Mammogram 1 02/23/21 Completed Cardioversion 2 07/21/20 Completed Mammogram 3 02/09/18 Completed Colonoscopy 4 11/21/17 Completed Surgical pathology report 5 11/21/17 Completed Hysterectomy 6 05/02/17 Completed Specimen from endometrium ob tained by biopsy 7 03/20/17 Completed Mammogram 8 02/07/17 Completed Mammogram - screening 9 02/02/16 C ompleted Punch biopsy of skin 06/12/15 Comp leted Thyroidectomy 2013 Completed Pelvic floor repair 2006 Compl eted left breast bioposy Compl eted wisdom teeth extraction C ompleted 1Impression: There is no mammographic evidence of malignancy. A 1 year screening mammogram is recommended. 2Successful cardioversion from atrial flutter to normal sinus rhythm 3ACR BI RADS Cat 1. Negative. There is no mammographic evidence of malignancy 4Impression: -One 3 mm polyp at 20 cm proximal to the anus, removed with a cold biopsy forcep. Resected and retrieved. -Diverticulosis in the entire examined colon. 5Final Pathologic Diagnosis: 1. Colon, 20cm, polypectomy: Colorectal mucosa with hyperplastic change. Gross Description: 1. Received in formalin, designated with gus's name, medical record number, and "colon at 20cm",and consists of 2 irregular fragments of saenz-pink soft tissue measuring 0.2 x 0.2 x 0.1 cm in aggregate, ranging 0.1-0.2 cm in greatest dimension. Entirely submitted in atissue processing bag. 6Pathology results. Cervix- no pathologic dx. Endometrium- benign proliferative endometrium; neg forhyperplasia & carcinoma. Myometrium- leomyoma; adenomyosis. 7Endometrium Biopsy 1> Benign endometrium with stromal decidualization 2> negative for hyperplasia and carcinoma 8no mammograhic evidence of malignancy. 1 yr screening is recommended 9There is no mammographic evidence of malignancy. A 1 year screening mammogram is recommended. Vital Signs Most recent to oldest [Reference Range]: 1 Height 173.4 cm (02/19/23 3:49 PM) Patient Weight 123.0 kg (02/19/23 3:49 PM) Body Mass Index 40.91 kg/m2 (02/19/23 3:49 PM) Temperature [36.5-37.9 DegC] 36.7 DegC (02/19/23 3:49 PM) Blood Pressure 130/78mmHg (02/19/23 3:49 PM) BP Location # 1 Left Arm (02/19/23 3:49 PM) Social History Social History Type Response Smoking Status Never smoked cigaret roselia Sex Outpatient Note * DO Verde Franklin J: PERFORM, SIGN, VERIFY Event Display: .Outpt Note Authored Date: [id number] Patient: RENATA ADAN Age: 62 years Sex: Female : 1960 Associated Diagnoses: None Author: DO Verde Franklin J Visit Information Visit type: Annual exam. Accompanied by: No one. Source of history: Self. Referral source: Self. History limitation: None. Chief Complaint 02/19/2023 15:47 EST Here for CPE. No new medical issues. History of Present Illness Here this afternoon for her annual exam. She retired at the end of last year, so she is about 10 days into usp. She and her have a trip planned to the [facility] and then shortly after returning, she is scheduled for the first of bilateral knee replacements. She has seen orthopedics (note reviewed) and had preadmission testing completed already. Since I saw her last, she was seen in the emergency department for an upper respiratory type infection with significant cervical lymphadenopathy; she was treated with Augmentin, and due to the size of the lymphadenitis, she did have a follow-up CT scan which showed complete resolution. She has been started on valsartan; initially 40 mg and then this was increased to current dose of 80 mg. She has since seen cardiology as well for her every 6 month visit. She is maintained on flecainide for atrial fibrillation; she is on Xarelto for systemic anticoagulation. Review of Systems Constitutional: Negative. Eye: Negative. Ear/Nose/Mouth/Throat: Negative. Respiratory: Negative. Cardiovascular: Negative. Gastrointestinal: Negative. Genitourinary: Negative. Hematology/Lymphatics: Negative. Musculoskeletal: Joint pain. Integumentary: Negative. Neurologic: Alert and oriented X4. Psychiatric: Negative. Health Status Allergies: Allergic Reactions (Selected) NKA. Current medications: (Selected) Prescriptions Prescribed Flexeril 10 mg oral tablet: 1 tab, PO, tid, for 10 day, PRN: as needed for spasm, 30 tab, 0 Refill(s) Metoprolol Succinate ER 25 mg oral tablet, extended release: See Instructions, TAKE ONE TABLET BY MOUTH ONE TIME DAILY, 30 unknown unit levothyroxine 150 mcg (0.15 mg) oral tablet: 1 tab, PO, Daily, WEEK., 16 tab, 3 Refill(s) valsartan 80 mg oral tablet: 1 tab, PO, Daily, for 30 day, 30 tab, 1 Refill(s) venlafaxine 37.5 mg oral capsule, extended release: 1 cap, PO, Daily, 90 cap, 3 Refill(s) venlafaxine 75 mg oral capsule, extended release: 1 cap, PO, Daily, 90 cap, 3 Refill(s) Documented Medications Documented Xarelto 20 mg oral tablet: daily estradiol 0.05 mg/24 hr vaginal ring: flecainide 50 mg oral tablet: 1 tab, PO, q12h levothyroxine 175 mcg (0.175 mg) oral capsule: . Problem list: Medical Hypothyroidism / ICD-9-CM 244.9 / Confirmed Weight disorder / SNOMED CT 726792337 / Confirmed PAF (paroxysmal atrial fibrillation) / SNOMED CT 593260002 / Confirmed HTN (hypertension) / SNOMED CT 7158638231 / Confirmed All Problems Hypothyroidism / ICD-9-CM 244.9 / Confirmed Weight disorder / SNOMED CT 161524280 / Confirmed PAF (paroxysmal atrial fibrillation) / SNOMED CT 595220645 / Confirmed HTN (hypertension) / SNOMED CT 3094411453 / Confirmed. Histories Family History: Entire family history is negative.. Social History Social & Psychosocial Habits Substance Abuse 03/04/2012 Risk Assessment: Denies Substance Abuse Tobacco 03/04/2012 Risk Assessment: Denies Tobacco Use 09/29/2015 Use: Never smoker . Physical Examination Vital Signs 02/19/2023 15:49 EST Temperature 36.7 DegC Temperature Route Oral Systolic Blood Pressure 130 mmHg Diastolic Blood Pressure 78 mmHg BP Location # 1 Left Arm BP Cuff Size Large Pulse 65 SpO2 96 % Measurements from flowsheet : Measurements 02/19/2023 15:52 EST Osteoporosis Screening Tool 12.60 02/19/2023 15:49 EST Height 173.4 cm Height Method Patient stated Patient Weight 123.0 kg Weight 123.000 kg Weight Method Standing Scale Body Mass Index 40.91 kg/m2 [place] Body Weight 64.5 kg General: Alert and oriented, No acute distress. Eye: Pupils are equal, round and reactive to light, Extraocular movements are intact. HENT: Normocephalic, Normal hearing, Oral mucosa is moist. Neck: Supple, Non-tender, No lymphadenopathy. Respiratory: Lungs are clear to auscultation, Respirations are non-labored, Breath sounds are equal. Cardiovascular: Normal rate, Regular rhythm, No murmur. Musculoskeletal Normal range of motion. Normal strength. No tenderness. Integumentary: Warm, Dry, Glandorf. Neurologic: Alert, Oriented, Normal sensory. Cognition and Speech: Oriented, Speech clear and coherent, Functional cognition intact. Psychiatric: Cooperative, Appropriate mood & affect. Health Maintenance Health Maintenance Pending (in the next year) OverDue Adult Influenza Vaccine due 08/09/22 and every 1 year Due Adult COVID-19 Vaccination due 02/19/23 Unknown Frequency Adult Social Determinants of Health Screening due 02/19/23 Unknown Frequency Hepatitis C Screening due 02/19/23 One-time only Satisfied (in the past 1 year) Satisfied Body Mass Index on 02/19/23. Satisfied by HUMBERTO Nelson Paula Breast Cancer Screening on 03/01/22. Satisfied by ISABELLA Kee Kiara Review / Management Results review: Lab results 02/07/2023 09:16 EST TSH 2.17 uIU/mL Free T4 1.24 ng/dL . Interpretation: Labs from [facility], 02/06 White blood count 8.8 Hemoglobin 14 Platelet count 430 Creatinine 0.79 Potassium 4.1. Impression and Plan Diagnosis Well adult exam (QAN96-OH Z00.00, Discharge, Medical). Plan: Well Adult Exam Cancer Screenings Colonoscopy up-to-date Mammography scheduled Metabolic Screenings Basic metabolic profile, lipid profile completed cardiology TSH noted; clinically and biochemically euthyroid Preserved renal function and normal serum potassium noted on current dose of valsartan Immunizations She has had seasonal flu vaccine Recommend RSV vaccination at pharmacy Prevnar at age 67 Tdap in 2030 Follow-up: Since she sees cardiology every 6 months, her blood pressure can be checked there. As such, we will see her back in 1 year or as needed . Orders PowerOrders Patient Care Ambulatory: Follow Up Appointment Ambulatory (Order): In 1 Year, Appointment Type In Office, Follow up With DO Verde Franklin J. Electronic Signature on File Electronically Reviewed/Signed by: Walt Verde DO Author Signature Dt/Tm:02/19/2023 04:55 PM Department of Family Medicine [facility] Patient Care team information Care Team Personnel Name: DO Verde Franklin J Position: Physician - Family Med Member Role: Primary Care Provider Address: Address: [address] [address] [place] Care Team Related Persons Name: MARVIN MIX Address: [place] Address: home [address] [place], [place] [id number] Name: RAVEN ADAN Address: home [address] [place] [address]
--- NOTE | 2023-03-03 10:21 | History & Physical Bridge Note ---
Date of Service March 03, 2023 History & Physical Bridge Note I have examined the patient, reviewed the History & Physical and in the interval since the performance of the History & Physical I have noted the following changes of clinical significance: no changes noted
[2023-03-03] MEDS ORDERED: ORTHO JOINT ANESTHETIC ONE (10:23)
[2023-03-03] MEDS ORDERED: LIDOCAINE 2% 2 ML VIAL/AMP(20MG/ML) INFIL ONE (10:50)
[2023-03-03] MEDS ORDERED: PROPOFOL IV EMULSION 10 MG/ML 20 ML VIAL IV ONE (10:50)
--- NOTE | 2023-03-03 11:30 | Operative Report ---
PG Post Operative Report Pre & Post Diagnosis Operation Date: 03/03/23 10:00 Pre-Op Diagnosis: DJD Right Knee Post-Op Diagnosis: DJD Right Knee I identified the patient and participated in the time-out.: Yes Procedure Operation Date: 03/03/23 10:00 Actual Procedures p Right Total Knee Arthroplasty(Right) - Allen Ray DO Surgeon Allen Ray DO Inside Channel Account Manager Jaime Owusu PA-C Estimated Blood Loss 30 Findings Consistent with Post-Op Diagnosis Specimens Right femoral and tibial bone Description of Procedure Implants used: I used a Kervin Persona total knee arthroplasty system with a size 9 narrow femur, E tibia, 31 oval patella, and a size 13 medial congruent polyethylene bearing. All components were cemented in place with Biomet cement. Lazara arrived [facility] for the above procedure. She was seen in the preoperative holding area and the operative extremity was identified and signed. She was given a preoperative antibiotic, TXA, a spinal anesthetic and an adductor nerve block. She was taken back to the operating room and laid on the table in supine position. She was given basic sedation. The operative knee was then prepped and draped in sterile fashion. A timeout was done, and the patient and the operative extremity was properly identified. A midline incision was made directly over the patella. Dissection was taken down to the extensor mechanism. A midvastus arthrotomy was used. The medial retinaculum was released and the fat pad was mostly excised. The knee was flexed and the ACL, PCL, and meniscus were removed. A drill was sent down the center of the femoral canal followed by an intramedullary stefania. Off that stefania a distal femoral cutting block was placed. 9 mm was resected off the distal femur at 5 of valgus. A posterior referencing AP sizing guide was then placed on the distal femur. The femur measured to be a size 9. 2 drill holes were placed in 3 of external rotation. A 4-in-1 cutting block was then impacted into place. Anterior, posterior, and chamfer cuts were then made. The proximal tibia was then exposed. An external tibial alignment guide was placed. A tibial cut guide was then anchored in place and the proximal tibia was then resected. The posterior aspect of the knee was then opened up and any additional meniscus fragments and osteophytes were removed. The tibia measured to be a size E. The tibial plate was then placed in the appropriate rotation and the tibia was drilled and punched. Trial components were then placed. I used a size 13 medial congruent polyethylene insert. The knee was brought through a full range of motion and felt to be stable. The peg holes for the femoral component were then drilled. The patella was then everted and 9 mm was resected off the posterior aspect of the patella. The patella measured to be a size 31 oval. 3 peg holes were then drilled. A trial patella was placed. The knee was once again brought through a full range of motion and felt to be stable. Trial components were then removed. The surrounding soft tissues were injected with 100 cc of an orthopedic pain control cocktail. All components were then cemented into place with Biomet cement. The final polyethylene insert was then snapped into place. Once cement was dry the tourniquet was deflated. Hemost asis was obtained. A dilute betadyne lavage was then done for 3 minutes. The joint was then irrigated with normal saline solution. The midvastus arthrotomy was then closed with #1 Vicryl suture. The skin was closed with 2-0 Vicryl, 3- 0V lock suture, and michelle. A soft compressive dressing was placed. She was then transferred to a hospital bed and taken to the postanesthesia care unit in stable condition. She tolerated the procedure well. Jaime Owusu PA-C, was present for the entire procedure. He was critical for patient positioning, prepping, draping, retraction exposure, wound closure and application of sterile dressing. I attest to the content of the Intraoperative Record and any orders documented therein. Any exceptions are noted below.
[2023-03-03] MEDS ORDERED: PHENYLEPHRINE 100MCG/ML 10ML SYR IV ONE (11:46)
[2023-03-03] MEDS ORDERED: ONDANSETRON INJ 2 MG/ML 2 ML VIAL ONE (12:35)
--- NOTE | 2023-03-03 12:41 | XRay Report ---
XR knee RT 1 or 2V routine HISTORY: 62 years-old Female Surgical Post Op right knee arthroplasty COMPARISON: Radiograph 10/09/2022 TECHNIQUE: 2 views of the right knee FINDINGS: Total joint arthroplasty with patellar resurfacing. Anterior midline skin michelle are noted along wit h expected postoperative soft tissue swelling and deep tissue air. No acute fracture, dislocation or unexpected opaque foreign body. IMPRESSION: Total joint arthroplasty with expected postoperative changes. ACT 112: Negative or not required by law. The above report was generated using voice recognition software. It may contain grammatical, syntax o r spelling errors. Electronically signed by: Paul oR M.D. 03/03/2023 12:40 PM
[2023-03-03] MEDS ORDERED: NALOXONE HCL 0.4 MG/1 ML VIAL/CARP IV PRN (13:19)
[2023-03-03] MEDS ORDERED: traMADol HCL 50 MG TABLET PO PRN (13:19)
[2023-03-03] MEDS ORDERED: oxyCODONE HCL IR 5 MG TAB (IMMEDIATE RELEASE) PO PRN (13:19)
[2023-03-03] MEDS ORDERED: HYDROmorphone INJ 0.5 MG/0.5 ML SYR IV PRN (13:19)
[2023-03-03] MEDS ORDERED: SODIUM CHLORIDE 0.9% 1,000 ML IV SCH (13:19)
[2023-03-03] MEDS ORDERED: MAGNESIUM HYDROXIDE SUSP 30 ML UDC PO PRN (13:19)
[2023-03-03] MEDS ORDERED: METOCLOPRAMIDE HCL INJ 5 MG/ML 2 ML VIAL IV PRN (13:19)
[2023-03-03] MEDS ORDERED: bisacodyL 10 MG SUPP PR PRN (13:19)
--- NOTE | 2023-03-03 13:40 | Anesthesiology Progress Note ---
Date of Service March 03, 2023 Anesthesia Post Procedure Vital Signs Vital Signs: Temp Pulse Pulse Resp BP Pulse Ox O2 Del Method 03/03/23 13:19 37 C 68 16 145/83 H 96 Room Air 03/03/23 13:10 63 13 128/76 98 Nasal Cannula 03/03/23 12:55 66 14 127/83 98 Nasal Cannula 03/03/23 12:40 63 12 120/76 95 Room Air 03/03/23 12:25 36.6 C 64 7 L 139/73 95 Room Air 03/03/23 12:15 65 14 125/76 95 Room Air 03/03/23 12:05 65 13 136/73 93 Room Air 03/03/23 11:55 36.1 C L 69 18 116/70 95 Room Air 03/03/23 09:11 145/91 H 03/03/23 08:41 36.5 C 68 20 158/104 H 95 Room Air O2 Flow Rate 03/03/23 13:19 03/03/23 13:10 2 03/03/23 12:55 2 03/03/23 12:40 03/03/23 12:25 03/03/23 12:15 03/03/23 12:05 03/03/23 11:55 03/03/23 09:11 03/03/23 08:41 Pain Intensity Right Knee: Pain Intensity: 2 Transfer of Care Handoff Completed per policy Notes Mental Status: alert / awake / arousable Patient Amnestic to Procedure: Yes Nausea / Vomiting: adequately controlled Pain: adequately controlled Airway Patency, RR, SpO2: stable & adequate BP & HR: stable & adequate Hydration State: stable & adequate Neuraxial Anesthesia: was administered and sensory block is resolving Anesthetic Complications: no major complications apparent
[2023-03-03] MEDS: KETOROLAC TROMETHAMINE 15 MG/ML VIAL IV SCH ×2 (14:06→19:08)
[2023-03-03] MEDS: ACETAMINOPHEN 500 MG TAB PO SCH ×2 (14:06→21:29)
[2023-03-03] MEDS: ceFAZolin 2000MG 2,000 MG/15 ML SYR IV SCH (18:08)
[2023-03-03] MEDS: FLECAINIDE ACETATE 100 MG TABLET PO SCH (19:07)
[2023-03-03] MEDS: DOCUSATE SODIUM 100 MG CAP PO SCH (19:08)
[2023-03-03] MEDS ORDERED: SENNA 8.6 MG TAB PO SCH (21:00)
[2023-03-04] MEDS: KETOROLAC TROMETHAMINE 15 MG/ML VIAL IV SCH ×2 (01:31→08:05)
[2023-03-04] MEDS: ceFAZolin 2000MG 2,000 MG/15 ML SYR IV SCH (01:31)
[2023-03-04] MEDS: ACETAMINOPHEN 500 MG TAB PO SCH (05:30)
[2023-03-04] MEDS: LEVOTHYROXINE SODIUM 175 MCG TABLET PO SCH ×2 (05:30→05:44)
[2023-03-04] MEDS ORDERED: dexAMETHasone 4 MG TAB PO SCH (08:00)
[2023-03-04] MEDS: DOCUSATE SODIUM 100 MG CAP PO SCH (08:04)
[2023-03-04] MEDS: FLECAINIDE ACETATE 100 MG TABLET PO SCH (08:04)
[2023-03-04] MEDS ORDERED: RIVAROXABAN 10 MG TABLET PO SCH (09:00)
[2023-03-04] MEDS ORDERED: VALSARTAN 80 MG TAB PO SCH (09:00)
[2023-03-04] MEDS ORDERED: VENLAFAXINE HCL XR 37.5 MG CAPXR PO SCH (09:00)
[2023-03-04] MEDS ORDERED: METOPROLOL SUCC 25MG EXT REL TAB PO SCH (09:00)
[2023-03-04] MEDS ORDERED: VENLAFAXINE HCL XR 75 MG CAPXR PO SCH (09:00)
[2023-03-04] MEDS ORDERED: MULTIVITAMIN TAB PO SCH (09:00)
--- NOTE | 2023-03-04 10:57 | Orthopedic Progress Note ---
Date of Service March 04, 2023 Assessment & Plan (1) Status post right knee replacement: Overall, she is doing quite well today with good pain control to the right knee. She will be seen by physical therapy later this morning to work on ambulation and range of motion exercises. She is currently on Xarelto 10 mg for DVT prophylaxis. She can be discharged home later today pending physical therapy evaluation. She will follow-up with orthopedics in 2 weeks for postoperative care. Subjective . Lazara was seen and evaluated at bedside this morning resting comfortably in no apparent distress. She states that her pain is well-controlled to the right knee. She has been up and out of bed with no significant issues. She has yet to be seen by physical therapy this morning. She denies any other concerns today. Review of Systems All systems reviewed & are unremarkable except as noted in HPI & below. Physical Exam . On physical examination of the right knee, dressings are clean, dry, and intact. Her leg is out in full extension. She has active plantarflexion dorsiflexion to the right ankle. +2 DP and PT pulses. Less than 2-second capillary refill. Normal sensation. Neurovascular intact. Results & Data Results & Data Laboratory Results . Diagnostic Findings . Postoperative x-rays of the right knee show prosthesis to be in anatomical alignment with no signs of fracture complication or loosening. PG Care Time/CCT Total # of Minutes Spent Total Time Spent with Patient: Total time spent is greater than 50% in coordination of care (as documented) at patient's floor/unit and/or counseling patient: Coding Level of Care Code 94864 Post Operative Follow-Up Diagnoses Status post right knee replacement Z96.651
--- NOTE | 2023-03-04 10:59 | Discharge Summary ---
Date of Service March 04, 2023 Admission HPI (Per Admitting) Lazara is a pleasant 62-year-old female who has been dealing with chronic increasing right knee pain. X-rays and clinical examination have been diagnostic for arthritis in the knee and patellofemoral arthritis. She has received years of cortisone injections and viscosupplementation from my partners. She continues to have a lot of pain. She has trouble going up and down stairs. Most of her pain is located anteriorly. I have sent her for an MRI. The MRI does show tricompartmental arthritis. After failing conservative treatment, she has elected proceed with a right total knee arthroplasty. Admission Exam (Per Admitting) On physical examination the right knee, she has slight varus deformity. She has tenderness palpation of the distal medial femoral condyle and over the medial joint line.. Principal Diagnosis Same as "Discharge Diagnosis" noted below under Discharge Instructions. Discharge Exam . On physical examination of the right knee, dressings are clean, dry, and intact. Her leg is out in full extension. She has active plantarflexion dorsiflexion to the right ankle. +2 DP and PT pulses. Less than 2-second capillary refill. Normal sensation. Neurovascular intact. Discharge Data Procedures Performed Operation Date: 03/03/23 10:00 Actual Procedures p Right Total Knee Arthroplasty(Right) - Allen Ray DO Ordered Studies 03/03/23 05:00 US - OR guided needle placemen Routine Hospital Course (1) Status post right knee replacement: On March 03, 2023 Lazara arrived at [facility] and underwent a right total knee arthroplasty with Dr. Ray with no complications. She had a spinal anesthetic. Postoperatively, she was transferred to the PACU for immediate postoperative care and then to the general orthopedic floor in stable condition. Her hospital course was uneventful. On postoperative day #1, she was started on Xarelto 10 mg for DVT prophylaxis. Her vital signs and pain were well-controlled to the right knee. She participated well with physical therapy doing ambulation and range of motion exercises. She was then discharged home in stable condition. She will follow-up with orthopedics in 2 weeks for postoperative care. PG Care Time/CCT Total # of Minutes Spent Total Time Spent with Patient: Total time spent is greater than 50% in coordination of care (as documented) at patient's floor/unit and/or counseling patient: Discharge Plan Discharge Items Patient Disposition: Home - Home Health Services Reason For Visit: DJD Right Knee Discharge Diagnosis: Same Activity: Per Instructions section Non-emergency contact: Surgeon Call non-emergency contact if: your temperature is above 101.5, your wound has increased redness and your wound has increased drainage Follow-up/Referrals: Walt Verde DO [Primary Care Provider] - Diet: Regular Addtl Attending Provider Instructions: Activity and Therapy Recommendations: * If you are using [facility] then therapy will be provided at your home until they feel you have accomplished all of your goals. * If you are using [facility] then Physical Therapy will be provided until they feel you are ready to start Outpatient Physical Therapy. * If you are not using home therapy then Outpatient Physical Therapy should start about 3-5 days from your day of surgery. Therapy will last about 6-10 weeks * It is important not to put a pillow under your knee when you are relaxing or sleeping. It is just as important to make sure you are getting your knee perfectly straight as it is to regain your knee bend. * You were shown a series of exercises in the hospital. Do these exercises three times each day including the exercises you were shown in physical therapy. * Get up and walk several times each day. For the first four weeks, try not to stand or walk for more than one hour at a time. If you do stand or walk for more than one hour, you will not hurt anything, but your leg will likely swell. * As you feel comfortable, you may change from the walker or crutches to a cane and then to independent walking. Medications: * Narcotic You will likely be sent home from the hospital with a prescription for the narcotic pain medication that worked best throughout your stay. * Cefadroxil -take the antibiotic twice a day for 10 days to help prevent infection. * Xarelto- Take 10 mg QAM for 10 days. Then may restart normal does of 20 mg QAM * Other medications may be prescribed for specific circumstances. If you have any questions, please call the office at . * Resume previous home medications unless otherwise instructed TEDs/Elastic Stockings: The white elastic stockings help limit swelling and prevent blood clots from forming in your legs.~ The more you wear them, the more they work. Wear them for six weeks. Dressing Care: The dressing can be changed after physical therapy on postop day #1. Daily dry dressing changes for a few days, especially if the incision is still draining some. If the incision is not draining then you may leave the michelle open to air. If there is a little bit of drainage or if the michelle are getting stuck on your clothing then cover the incision with a dry dressing. The michelle will be removed at your 2 week follow-up appointment. Showering: You may shower 5 days from the day of surgery as long as the incision is no longer draining. You may shower with the michelle exposed. Let soapy water run over the michelle and pat them dry. Do not scrub or soak the incision. Things To Watch For: * Drainage from the incision site that occurs more than one week after your surgery. * Increased redness at the incision site. * Fever above 102 degrees Fahrenheit. * Unusual chest pain or shortness of breath. * Call [facility] at with any of the above problems Follow-Up Visit: Follow-up with Dr. Ray's PA (Allen Berman) 2-3 weeks after your day of surgery. He will remove your michelle and answer any questions. If you have any additional questions or concerns, Dr Ray is usually in the office at the same time and will be available An appointment was probably scheduled when you signed-up for surgery in the office. If you have any questions call Office Instructions: More detailed instructions as well as Frequently Asked Questions were provided in a folder by our office when you signed-up for surgery. Please review these instructions when you get home. If you have any further questions or concerns, please feel free to call the office at [phone] Pending Studies at Discharge: No Stand-Alone Forms: [facility], Pain - Opioid Pain Management, Smoking Cessation Medications and DC Order Prescriptions: New oxycodone 5 mg Tablet 5 mg PO Q6 PRN (Reason: pain) Qty: 30 0RF Xarelto 10 mg Tablet 10 mg PO DAILY 10 Days Qty: 10 0RF cefadroxil 500 mg capsule 500 mg PO BID 10 Days Qty: 20 0RF Continued flecainide 50 mg tablet 50 mg PO Q12H Qty: 180 3RF metoprolol succinate 25 mg tablet extended release 24 hr 25 mg PO QAM Qty: 90 3RF estradiol [Yuvafem] 10 mcg tablet 10 mcg vaginal 2XWK Qty: 24 4RF venlafaxine 37.5 mg capsule,extended release 24hr 37.5 mg PO QAM levothyroxine 175 mcg tablet 175 mcg PO 3XWK Rx Instructions: 175 mcg PO 3 days a week ; levothyroxine 150 mcg tablet 150 mcg PO 4XWK Rx Instructions: 150 mcg PO 4 x week ; venlafaxine 75 mg Tablet 75 mg PO QAM valsartan 80 mg Tablet 80 mg PO QAM No Action Xarelto 20 mg tablet 20 mg PO QAM Qty: 90 3RF Krames/Other Patient Handouts: Total Knee Replacement Admission Data Admit Date/Time: 03/03/23 12:02 Attending Provider: Allen Ray Admit Provider: Allen Ray Primary Care Provider: Walt Verde Other Interventions: Discharge Summary Assessment (RN) Last Done: 03/04/23 09:41
[2023-03-05] MEDS ORDERED: LEVOTHYROXINE SODIUM 150 MCG TABLET PO SCH (06:30)
== END 2023-03-04 10:52 | disposition home health service (06) ==
LOC: 3N 08:19 → ASU 08:19

== ENCOUNTER 2023-05-19 06:33 | Observation (INO) ==
--- NOTE | 2023-05-05 11:18 | Anesthesiology Consultation ---
Date of Service May 05, 2023 Assessment & Plan (1) Encounter for pre-operative examination: Chart Review Chart Review: Acceptable Risk for Surgery and Patient NOT seen in Pre Admission Testing - Check coags AM DOS Pt currently scheduled as 23 hours observation. If surgeon decides to change patient to Same Day Joint, patient would be acceptable risk for TKA, pending patient is motivated, has good support and surgeon's office completes Same Day Joint Program preop requirements. -Infectious Disease screening: Per PAT nursing assessment on 05/05/23. No known infectious disease contacts in past 10 days or current infectious disease symptoms. No recent travel outside the country. Right TKA 03/03/23= Done under SAB at L3-4 Seen by cardio 01/15/23= Atrial fibrillation: She appears to be doing quite well on her current dose of flecainide. Two brief episodes of possible atrial fibrillation which did not produce severe symptoms and resolved quickly. We discussed options for continued treatment and elected to continue on flecainide as she appears to be having a good result. Continue systemic anticoagulation with Xarelto, currently dosed appropriately. In anticipation of knee replacement she could stop her Xarelto 2 days prior to the anticipated procedure and resume a soon as possible afterwards. (Prior to right TKA - patient stopped Xarelto 72 hours prior to procedure (had been approved by cardio per patient); spoke again with patient 05/05/23- will be holding Xarelto at least 72 hours prior to procedure in order to be a candidate for SAB) History Surgery Operation Date: 05/19/23 08:00 Proposed Procedures p Left Total Knee Arthroplasty - Allen Ray DO Height/Weight Height: 5 ft 9 in Weight: 118.388 kg Allergies Allergy/AdvReac Type Severity Reaction Status Date / Time No Known Allergies Allergy Verified 05/05/23 07:39 Medications Home Medications Medication Instructions Recorded Confirmed Last Taken venlafaxine 75 mg tablet 75 mg PO QAM 07/16/19 05/05/23 03/03/23 06:45 levothyroxine 150 mcg tablet 150 mcg PO 4XWK 04/13/20 05/05/23 03/03/23 06:45 levothyroxine 175 mcg tablet 175 mcg PO 3XWK 04/13/20 05/05/23 03/02/23 venlafaxine 37.5 mg 37.5 mg PO QAM 12/05/21 05/05/23 03/03/23 06:45 capsule,extended release 24 hr valsartan 80 mg tablet 80 mg PO QAM 02/11/23 05/05/23 03/02/23 08:00 estradiol 10 mcg vaginal tablet 10 mcg vaginal 2XWK #24 tabs 02/21/23 05/05/23 02/28/23 (Yuvafem) flecainide 50 mg tablet 50 mg PO Q12H #180 tabs 02/24/23 05/05/23 03/03/23 06:45 metoprolol succinate 25 mg 25 mg PO QAM #90 tabs 02/24/23 05/05/23 03/03/23 06:45 tablet,extended release 24 hr rivaroxaban 20 mg tablet (Xarelto) 20 mg PO QAM #90 tabs 02/24/23 05/05/23 02/27/23 acetaminophen 500 mg tablet 1,000 mg PO TID 05/05/23 05/05/23 Unknown diphenhydramine HCl 25 mg capsule 25 mg PO HS PRN Sleep 05/05/23 05/05/23 Unk nown (Benadryl) Past Medical History Medical History (Updated 05/05/23 @ 11:11 by Cece Rodney PA-C) Anxiety and depression Effusion, right knee beginning of April 2023, treated at [facility] emergency room. pt denies any problems currently. Ortho aware per 04/15/23 office visit History of COVID-19 03/2020- no hosp; resolved Hx of papillary thyroid carcinoma s/p total thyroidectomy 2013- no chemo or XRT Hypertension Hypothyroidism Paroxysmal A-fib "fast ventricular response" rarely, last episode ~2021. controlled w/ meds- follows w/ Dr Solano on Xarelto Sensorineural hearing loss of both ears Past Family History Family History Father Atrial fibrillation Other No family history of adverse response to anesthesia Denies family history of Ovarian cancer Prostate cancer Myocardial infarction Breast cancer Colorectal cancer Past Surgical History Surgical History H/O: hysterectomy History of arthroscopy LEFT SHOULDER History of cardioversion at [facility] 07/2020 History of colonoscopy History of thyroidectomy, total Hx of abdominal surgery PELVIC FLOOR RECONSTRUCTION Status post right knee replacement (02/2023) [place] teeth removed Social History Smoking Status: Never smoker Do You Dip or Chew Tobacco: No Hx Alcohol Use: No Hx Substance Use: No substance use type: does not use Lab Results Anesthesia Preop Results Results Anesthesia Widget: WBC 11.28 K/ul (4.8-10.8) H 04/14/23 Hgb 12.9 g/dl (12.0-16.0) 04/14/23 Hct 38.6 % (37.0-47.0) 04/14/23 Plt 413 K/uL (130-400) H 04/14/23 Na 136 mmol/L (136-145) 04/14/23 K 3.8 mmol/L (3.5-5.1) 04/14/23 Cl 102 mmol/L (98-107) 04/14/23 CO2 26 mmol/L (21-32) 04/14/23 BUN 13 mg/dl (6-23) 04/14/23 Creat 0.76 mg/dl (0.6-1.2) 04/14/23 Glucose Level 71 mg/dl (70-99(Fasting)) 04/14/23 PT 13.0 Seconds (9.0-12.0) H 04/14/23 PTT 39 Seconds (21-31) H 04/14/23 INR 1.2 (0.9-1.1) H 04/14/23 Testing Laboratory Results Elevated coags- on Xarelto-- will recheck DOS (patient had elevated coags prior to previous right TKA- had discussed with Dr. Lacey and rechecked DOS) Electrocardiogram Date: 02/06/23 Findings: + SB @ (59bpm) Incomplete RBBB Chest X-Ray Date: 12/25/22 Findings: + NAD FINDINGS: Lung volumes are normal. Lungs are clear. There is no pneumothorax or pleural effusion. There is mild cardiomegaly. Mediastinal contours are normal. There is no evidence for pulmonary edema. Echocardiogram Date: 01/26/18 EF: 60-65% LV Function: normal RWMA: + none Valvular Disease: + no significant valvular disease Left atrium is mildly dilated. RV systolic function borderline reduced. Other Testing Soft Tissue Neck CT 01/29/23= Resolution of left cervical lymphadenopathy and associated inflammation shown on prior CT. No suspicious cervical lymph nodes. No abnormality within the thyroidectomy bed. Periapical lucency/abscess of the left second maxillary molar with associated mild mucosal thickening of the left maxillary sinus. This could be correlated with dental pain. (Patient had dental exam/cleaning same day of CT with no issues- patient with no dental pain, swelling or discharge per PAT appt 02/06/23)
--- NOTE | 2023-05-15 11:19 | History & Physical Report ---
Date of Service May 15, 2023 Assessment & Plan (1) Osteoarthritis of left knee: We will proceed with a left total knee arthroplasty. Postoperatively she will be started on Xarelto for DVT prophylaxis and kept overnight in the hospital for postop medical management. She plans to have [facility] come to her house upon discharge. History of Present Illness Chief Complaint: Osteoarthritis of the left knee. Primary Care Provider: Walt VerdeDO Haile is a pleasant 63-year-old female who I did a right knee replacement on 3 months ago. She did very well with that. Unfortunately she is dealing with left knee pain. X-rays clinical examination been diagnostic for advanced arthritis of the left knee. After failing conservative treatment, she has elected proceed with a left total knee arthroplasty.. Allergies Allergy/AdvReac Type Severity Reaction Status Date / Time No Known Allergies Allergy Verified 05/05/23 07:39 Home Medications Medication Instructions Recorded Confirmed Type venlafaxine 75 mg tablet 75 mg PO QAM 07/16/19 05/05/23 History levothyroxine 150 mcg tablet 150 mcg PO 4XWK 04/13/20 05/05/23 History levothyroxine 175 mcg tablet 175 mcg PO 3XWK 04/13/20 05/05/23 History venlafaxine 37.5 mg 37.5 mg PO QAM 12/05/21 05/05/23 History capsule,extended release 24 hr valsartan 80 mg tablet 80 mg PO QAM 02/11/23 05/05/23 History estradiol 10 mcg vaginal tablet 10 mcg vaginal 2XWK #24 tabs 02/21/23 05/05/23 Rx (Yuvafem) flecainide 50 mg tablet 50 mg PO Q12H #180 tabs 02/24/23 05/05/23 Rx metoprolol succinate 25 mg 25 mg PO QAM #90 tabs 02/24/23 05/05/23 Rx tablet,extended release 24 hr rivaroxaban 20 mg tablet (Xarelto) 20 mg PO QAM #90 tabs 02/24/23 05/05/23 Rx acetaminophen 500 mg tablet 1,000 mg PO TID 05/05/23 05/05/23 History diphenhydramine HCl 25 mg capsule 25 mg PO HS PRN Sleep 05/05/23 05/05/23 History (Benadryl) Past Med/Surg History Medical History Effusion, right knee beginning of April 2023, treated at [facility] emergency room. pt denies any problems currently. Ortho aware per 04/15/23 office visit Hx of papillary thyroid carcinoma s/p total thyroidectomy 2013- no chemo or XRT History of COVID-19 03/2020- no hosp; resolved Sensorineural hearing loss of both ears Hypothyroidism Anxiety and depression Paroxysmal A-fib "fast ventricular response" rarely, last episode ~2021. controlled w/ meds- follows w/ Dr Solano on Xarelto Hypertension Surgical History History of cardioversion at [facility] 07/2020 Status post right knee replacement (02/2023) History of arthroscopy LEFT SHOULDER History of colonoscopy [place] teeth removed History of thyroidectomy, total Hx of abdominal surgery PELVIC FLOOR RECONSTRUCTION H/O: hysterectomy Family History Father Atrial fibrillation Other No family history of adverse response to anesthesia Denies family history of Ovarian cancer Prostate cancer Myocardial infarction Breast cancer Colorectal cancer Social History Smoking Status: Never smoker Second Hand Exposure: No; Do You Dip or Chew Tobacco: No; Hx Alcohol Use: No Hx Substance Use: No Preferred Language: Malay Communication Ability: Effective Header Up Required: No Beliefs That Will Affect Care: None marital status: Current Living Situation: Spouse current occupational status: retired Feels Safe at Home: Yes Diet: regular caffeine: Yes Dental Care, Regularly: Yes Seatbelt Use: always Sunscreen Use: Yes Assistive Devices: Glasses Review of Systems All systems reviewed & are unremarkable except as noted in HPI & below. Physical Exam On physical examination left knee, she has a varus deformity. She has tenderness palpation of the distal medial femoral condyle and over the medial joint line.. Constitutional WD/WN, vitals as above Eyes PERRL, conjunctivae normal, anicteric sclerae ENMT external ear and nose normal, oropharynx normal Neck trachea midline, no thyromegaly Respiratory normal respiratory effort Cardiovascular RRR, no murmur, no edema Gastrointestinal (Abdomen) normal bowel sounds, soft, nontender, no hepatosplenomegaly Psychiatric A+Ox3, euthymic affect Results & Data Results & Data Laboratory Results . Diagnostic Findings X-rays of the left knee show advanced osteoarthritis with joint space narrowing, osteophyte formation, and [id number] articulation. PG Care Time/CCT Total # of Minutes Spent Total Time Spent with Patient: Total time spent is greater than 50% in coordination of care (as documented) at patient's floor/unit and/or counseling patient: Coding Level of Care Code None Diagnoses Osteoarthritis of left knee M17.12
[~2023-05-19 06:33] MED LIST changes: -ACETAMINOPHEN 500 MG TAB PO SCH; +BUPIVACAINE 0.5 % 5 MG/1 ML PF 10ML VIAL ONE; -FAMOTIDINE 20 MG TAB PO SCH; -GABAPENTIN 600 MG DOSE PO SCH; -LR 500ML BOLUS, THEN 15ML/HR IV SCH; -LR 60ML/HR IV SCH; -ROPIV 0.5% 246mg, Ketorolac 30mg, EPINEPHrine 0.5mg in NSS INFIL SCH; -TRANEXAMIC ACID 1,000 MG **IV Intra-op IV SCH; -TRANEXAMIC ACID 1,000 MG **IV Pre-op IV SCH; -dexAMETHasone**PF** 10 MG/ML VIAL IV SCH
--- NOTE | 2023-05-19 06:35 | History & Physical Bridge Note ---
Date of Service May 19, 2023 History & Physical Bridge Note I have examined the patient, reviewed the History & Physical and in the interval since the performance of the History & Physical I have noted the following changes of clinical significance: no changes noted
[2023-05-19] MEDS ORDERED: MIDAZOLAM HCL 1 MG/ML 2ML VIAL ONE ×2 (07:01→08:01)
[2023-05-19] MEDS ORDERED: ONDANSETRON INJ 2 MG/ML 2 ML VIAL ONE (07:01)
[2023-05-19] MEDS ORDERED: PROPOFOL IV EMULSION 10 MG/ML 20 ML VIAL IV ONE (07:01)
[2023-05-19] MEDS ORDERED: LIDOCAINE 2% 2 ML VIAL/AMP(20MG/ML) INFIL ONE (07:01)
[2023-05-19] MEDS ORDERED: ONDANSETRON INJ 2 MG/ML 2 ML VIAL IV PRN ×2 (07:03→11:56)
[2023-05-19] MEDS ORDERED: ePHEDrine sulfate 50 MG/ML AMP IV PRN (07:03)
[2023-05-19] MEDS ORDERED: ATROPINE SULFATE 0.1 MG/ML 10ML SYR IV PRN (07:03)
[2023-05-19] MEDS ORDERED: fentaNYL citrate PF 100 MCG/2 ML VIAL IV PRN (07:03)
[2023-05-19] MEDS: LR 500ML BOLUS, THEN 15ML/HR IV SCH (07:10)
[2023-05-19] MEDS: LR 60ML/HR IV SCH (07:11)
[2023-05-19] MEDS: dexAMETHasone**PF** 10 MG/ML VIAL IV SCH (07:13)
[2023-05-19] MEDS: GABAPENTIN 300 MG CAP PO SCH (07:13)
[2023-05-19] MEDS: ACETAMINOPHEN 500 MG TAB PO SCH ×2 (07:13→16:30)
[2023-05-19] MEDS: FAMOTIDINE 20 MG TAB PO SCH (07:14)
[2023-05-19 07:26] LABS: INR 1.1 (0.9-1.1); Partial Thromboplastin Ratio 1.2; Partial Thromboplastin Time 34 Seconds (21-31); Prothrombin Time 11.6 Seconds (9.0-12.0)
[2023-05-19] MEDS: TRANEXAMIC ACID 1,000 MG **IV Pre-op IV SCH (07:37)
[2023-05-19] MEDS: ceFAZolin 2000MG 2,000 MG/15 ML SYR IV SCH (07:54)
[2023-05-19] MEDS ORDERED: ceFAZolin 330 MG/ML 1 GM VIAL ONE (08:09)
[2023-05-19] MEDS: ceFAZolin 1000MG 1,000 MG/7.5 ML SYR IV ONE (08:09)
[2023-05-19] MEDS ORDERED: ePHEDrine sulfate 50 MG/ML AMP ONE (08:31)
[2023-05-19] MEDS: ROPIV 0.5% 246mg, Ketorolac 30mg, EPINEPHrine 0.5mg in NSS INFIL SCH (08:33)
[2023-05-19] MEDS: ORTHO JOINT ANESTHETIC ONE (08:33)
[2023-05-19] MEDS: TRANEXAMIC ACID 1,000 MG **IV Intra-op IV SCH (08:37)
[2023-05-19] MEDS ORDERED: ceFAZolin 2000MG 2,000 MG/15 ML SYR IV SCH (08:45)
--- NOTE | 2023-05-19 08:58 | Operative Report ---
PG Post Operative Report Pre & Post Diagnosis Operation Date: 05/19/23 08:00 Pre-Op Diagnosis: Left Knee Osteoarthritis Post-Op Diagnosis: Left Knee Osteoarthritis I identified the patient and participated in the time-out.: Yes Procedure Operation Date: 05/19/23 08:00 Actual Procedures p Left Total Knee Arthroplasty(Left) - Allen Ray DO Surgeon Allen Ray DO [employer] Jaime Owusu PA-C Estimated Blood Loss 30 Findings Consistent with Post-Op Diagnosis Specimens Left femoral tibial bone Description of Procedure Implants used: I used a Kervin Persona total knee arthroplasty system with a size 9 narrow femur, E tibia, 31 patella, and a size 11 medial congruent polyethylene bearing. All components were cemented in place with Biomet cement. [facility] arrived [facility] for the above procedure. She was seen in the preoperative holding area and the operative extremity was identified and signed. She was given a preoperative antibiotic, TXA, a spinal anesthetic and an adductor nerve block. She was taken back to the operating room and laid on the table in supine position. She was given basic sedation. The operative knee was then prepped and draped in sterile fashion. A timeout was done, and the patient and the operative extremity was properly identified. A midline incision was made directly over the patella. Dissection was taken down to the extensor mechanism. A subvastus arthrotomy was used. The medial retinaculum was released and the fat pad was mostly excised. The knee was flexed and the ACL, PCL, and meniscus were removed. A drill was sent down the center of the femoral canal followed by an intramedullary stefania. Off that stefania a distal femoral cutting block was placed. 9 mm was resected off the distal femur at 5 of valgus. A posterior referencing AP sizing guide was then placed on the distal femur. The femur measured to be a size 9. 2 drill holes were placed in 3 of external rotation. A 4-in-1 cutting block was then impacted into place. Anterior, posterior, and chamfer cuts were then made. The proximal tibia was then exposed. An external tibial alignment guide was placed. A tibial cut guide was then anchored in place and the proximal tibia was then resected. The posterior aspect of the knee was then opened up and any additional meniscus fragments and osteophytes were removed. The tibia measured to be a size E. The tibial plate was then placed in the appropriate rotation and the tibia was drilled and punched. Trial components were then placed. I used a size 11 medial congruent polyethylene insert. The knee was brought through a full range of motion and felt to be stable. The peg holes for the femoral component were then drilled. The patella was then everted and 9 mm was resected off the posterior aspect of the patella. The patella measured to be a size 31 oval. 3 peg holes were then drilled. A trial patella was placed. The knee was once again brought through a full range of motion and felt to be stable. Trial components were then removed. The surrounding soft tissues were injected with 100 cc of an orthopedic pain control cocktail. All components were then cemented into place with Biomet cement. The final polyethylene insert was then snapped into place. Once cement was dry the tourniquet was deflated. Hemostasis was obtained. A dilute betadyne lavage was then done for 3 minutes. The joint was then irrigated with normal saline solution. The subvastus arthrotomy was then closed with #1 Vicryl suture. The skin was closed with 2-0 Vicryl, 3-0V lock suture, and michelle. A soft compressive dressing was placed. She was then transferred to a hospital bed and taken to the postanesthesia care unit in stable condition. She tolerated the procedure well. Jaime Owusu PA-C, was present for the entire procedure. He was critical for patient positioning, prepping, draping, retraction exposure, wound closure and application of sterile dressing. I attest to the content of the Intraoperative Record and any orders documented therein. Any exceptions are noted below.
--- NOTE | 2023-05-19 11:55 | Anesthesiology Progress Note ---
Date of Service May 19, 2023 Anesthesia Post Procedure Vital Signs Vital Signs: Temp Pulse Pulse Resp BP Pulse Ox O2 Del Method 05/19/23 11:30 80 16 123/68 97 Nasal Cannula 05/19/23 11:15 76 13 145/74 H 95 Nasal Cannula 05/19/23 11:00 69 13 141/67 H 95 Room Air 05/19/23 10:45 75 13 130/64 94 Room Air 05/19/23 10:35 76 15 115/65 97 Room Air 05/19/23 10:20 70 15 120/71 94 Room Air 05/19/23 10:10 68 14 117/67 95 Room Air 05/19/23 10:00 67 14 129/66 94 Room Air 05/19/23 09:50 70 20 121/65 97 Room Air 05/19/23 09:40 97.7 F 70 12 109/58 L 95 Room Air 05/19/23 09:30 71 14 120/68 99 Oxymask 05/19/23 09:21 97.9 F 73 15 113/58 L 97 Oxymask 05/19/23 06:52 97.5 F L 71 18 131/93 96 Room Air O2 Flow Rate 05/19/23 11:30 2 05/19/23 11:15 2 05/19/23 11:00 05/19/23 10:45 05/19/23 10:35 05/19/23 10:20 05/19/23 10:10 05/19/23 10:00 05/19/23 09:50 05/19/23 09:40 05/19/23 09:30 10 05/19/23 09:21 10 05/19/23 06:52 Pain Intensity Right Leg: Pain Intensity: 2 Transfer of Care Handoff Completed per policy Notes Mental Status: alert / awake / arousable and participated in evaluation Patient Amnestic to Procedure: Yes Nausea / Vomiting: adequately controlled Pain: adequately controlled Airway Patency, RR, SpO2: stable & adequate BP & HR: stable & adequate Hydration State: stable & adequate Neuraxial Anesthesia: was administered and sensory block is resolving Anesthetic Complications: no major complications apparent and Pt Satisfied with anesthetic care
[2023-05-19] MEDS ORDERED: NALOXONE HCL 0.4 MG/1 ML VIAL/CARP IV PRN (11:56)
[2023-05-19] MEDS ORDERED: bisacodyL 10 MG SUPP PR PRN (11:56)
[2023-05-19] MEDS ORDERED: HYDROmorphone INJ 0.5 MG/0.5 ML SYR IV PRN (11:56)
[2023-05-19] MEDS ORDERED: MAGNESIUM HYDROXIDE SUSP 30 ML UDC PO PRN (11:56)
[2023-05-19] MEDS ORDERED: METOCLOPRAMIDE HCL INJ 5 MG/ML 2 ML VIAL IV PRN (11:56)
--- NOTE | 2023-05-19 12:28 | XRay Report ---
XR knee LT 1 or 2V routine CLINICAL HISTORY: Surgical Post Op TECHNIQUE: 2 views of the left knee were obtained. Comparison: None available at the time of this dictation. FINDINGS: Patient is status post total knee arthroplasty with expected postsurgical changes including soft tiss ue swelling and subcutaneous emphysema. No periarticular lucency or hardware fracture is seen. IMPRESSION: Expected postoperative appearance status post placement of total knee arthroplasty. ACT 112: Negative or not required by law. Electronically signed by: Lan Garcia M.D. 05/19/2023 12:26 PM
[2023-05-19] MEDS: SODIUM CHLORIDE 0.9% 1,000 ML IV SCH (15:15)
[2023-05-19] MEDS: traMADol HCL 50 MG TABLET PO PRN (15:35)
[2023-05-19] MEDS: FLECAINIDE ACETATE 100 MG TABLET PO SCH (16:31)
[2023-05-19] MEDS: KETOROLAC TROMETHAMINE 15 MG/ML VIAL IV SCH (16:31)
[2023-05-19] MEDS ORDERED: Nursing to Pharmacy Communication SCH (17:15)
[2023-05-19] MEDS: ceFAZolin 1000MG 1,000 MG/7.5 ML SYR IV SCH (17:29)
[2023-05-19 19:08] VITALS: RESP 16
[2023-05-19] MEDS: DOCUSATE SODIUM 100 MG CAP PO SCH (20:56)
[2023-05-19] MEDS: SENNA 8.6 MG TAB PO SCH (20:56)
[2023-05-19] MEDS: oxyCODONE HCL IR 5 MG TAB (IMMEDIATE RELEASE) PO PRN (20:56)
[2023-05-20 02:58] VITALS: O2SAT 97
[2023-05-20 07:10] VITALS: BP 148/73; PULSE 66; TEMP 98.1
[2023-05-20] MEDS: dexAMETHasone 4 MG TAB PO SCH (07:31)
[2023-05-20] MEDS: MULTIVITAMIN TAB PO SCH (08:24)
[2023-05-20] MEDS: RIVAROXABAN 10 MG TABLET PO SCH (08:25)
[2023-05-20] MEDS: METOPROLOL SUCC 25MG EXT REL TAB PO SCH (08:25)
[2023-05-20] MEDS: VENLAFAXINE HCL XR 37.5 MG CAPXR PO SCH (08:26)
[2023-05-20] MEDS: VENLAFAXINE HCL 50 MG TAB PO SCH (08:26)
[2023-05-20] MEDS: LEVOTHYROXINE SODIUM 150 MCG TABLET PO SCH (08:27)
[2023-05-20] MEDS: VALSARTAN 80 MG TAB PO SCH (08:27)
--- NOTE | 2023-05-20 10:29 | Orthopedic Progress Note ---
Date of Service May 20, 2023 Assessment & Plan (1) Status post left knee replacement: Overall, she is doing quite well today with good pain control to the left knee. She will work with physical therapy later this morning to work on ambulation and range of motion exercises. She was started on Xarelto 10 mg today. She will do this for 2 weeks and then switch back to her Xarelto 20 mg for DVT prophylaxis. She can be discharged home later this morning pending physical therapy evaluation. She will follow-up with orthopedics in 2 weeks for postoperative management. Subjective . Lazara was seen and evaluated this morning resting comfortably in no apparent distress. She notes that her pain is well-controlled to the left knee. She has been up and ambulating without any significant issues. She has yet to work physical therapy this morning. She denies any other concerns today. Review of Systems All systems reviewed & are unremarkable except as noted in HPI & below. Physical Exam . On physical examination of the left knee, the dressings are clean, dry, and intact. Her leg is out in full extension. She has active plantarflexion dorsiflexion of the left ankle. +2 DP and PT pulses. Less than 2-second capillary refill. Normal sensation. Neurovascular intact. Results & Data Results & Data Laboratory Results . Diagnostic Findings . Postoperative x-rays of the left knee show prosthesis to be in anatomical alignment with no signs of fracture complication or loosening. PG Care Time/CCT Total # of Minutes Spent Total Time Spent with Patient: Total time spent is greater than 50% in coordination of care (as documented) at patient's floor/unit and/or counseling patient: Coding Level of Care Code 62074 Post Operative Follow-Up Diagnoses Status post left knee replacement Z96.652
--- NOTE | 2023-05-20 10:31 | Discharge Summary ---
Date of Service May 20, 2023 Admission HPI (Per Admitting) Lazara is a pleasant 63-year-old female who I did a right knee replacement on 3 months ago. She did very well with that. Unfortunately she is dealing with left knee pain. X-rays clinical examination been diagnostic for advanced arthritis of the left knee. After failing conservative treatment, she has elected proceed with a left total knee arthroplasty.. Admission Exam (Per Admitting) On physical examination left knee, she has a varus deformity. She has tenderness palpation of the distal medial femoral condyle and over the medial joint line.. Principal Diagnosis Same as "Discharge Diagnosis" noted below under Discharge Instructions. Discharge Exam . On physical examination of the left knee, the dressings are clean, dry, and intact. Her leg is out in full extension. She has active plantarflexion dorsiflexion of the left ankle. +2 DP and PT pulses. Less than 2-second capillary refill. Normal sensation. Neurovascular intact. Discharge Data Procedures Performed Operation Date: 05/19/23 08:00 Actual Procedures p Left Total Knee Arthroplasty(Left) - Allen Ray DO Ordered Studies 05/19/23 05:00 US - OR guided needle placemen Routine Hospital Course (1) Status post left knee replacement: On May 19, 2023 Lazara arrived at [facility] and underwent a left total knee arthroplasty performed by Dr. Ray with no complications. She had a spinal anesthetic. Postoperatively, she was transferred to the PACU for immediate postoperative management and then transferred to the general orthopedic floor in stable condition. Her hospital course was uneventful. On postoperative day #1, her vital signs were stable and her pain was well- controlled. She was started on her Xarelto for DVT prophylaxis. She participated well with physical therapy working on ambulation and range of motion exercises. She was then discharged home in stable condition. She will follow-up in 2 weeks with orthopedics for postoperative management. PG Care Time/CCT Total # of Minutes Spent Total Time Spent with Patient: Total time spent is greater than 50% in coordination of care (as documented) at patient's floor/unit and/or counseling patient: Discharge Plan Discharge Items Patient Disposition: Home - Home Health Services Reason For Visit: Left Knee Degenerative Joint Disease Discharge Diagnosis: Same Activity: Per Instructions section Non-emergency contact: Surgeon Call non-emergency contact if: your temperature is above 101.5, your wound has increased redness, your wound has increased drainage and your wound pain has increased Follow-up/Referrals: Urvashi Torres MD [Primary Care Provider] - Diet: Regular Addtl Attending Provider Instructions: Activity and Therapy Recommendations: * If you are using [facility] then therapy will be provided at your home until they feel you have accomplished all of your goals. * If you are using [facility] then Physical Therapy will be provided until they feel you are ready to start Outpatient Physical Therapy. * If you are not using home therapy then Outpatient Physical Therapy should start about 3-5 days from your day of surgery. Therapy will last about 6-10 weeks * It is important not to put a pillow under your knee when you are relaxing or sleeping. It is just as important to make sure you are getting your knee perfectly straight as it is to regain your knee bend. * You were shown a series of exercises in the hospital. Do these exercises three times each day including the exercises you were shown in physical therapy. * Get up and walk several times each day. For the first four weeks, try not to stand or walk for more than one hour at a time. If you do stand or walk for more than one hour, you will not hurt anything, but your leg will likely swell. * As you feel comfortable, you may change from the walker or crutches to a cane and then to independent walking. Medications: * Narcotic You will likely be sent home from the hospital with a prescription for the narcotic pain medication that worked best throughout your stay. * Cefadroxil -take the antibiotic twice a day for 10 days to help with infection * Xarelto --take Xarelto 10 mg daily for 2 weeks and then resume your 20 mg dosage. * Other medications may be prescribed for specific circumstances. If you have any questions, please call the office at . * Resume previous home medications unless otherwise instructed TEDs/Elastic Stockings: The white elastic stockings help limit swelling and prevent blood clots from forming in your legs.~ The more you wear them, the more they work. Wear them for six weeks. Dressing Care: The dressing can be changed after physical therapy on postop day #1. Daily dry dressing changes for a few days, especially if the incision is still draining some. If the incision is not draining then you may leave the michelle open to air. If there is a little bit of drainage or if the michelle are getting stuck on your clothing then cover the incision with a dry dressing. The michelle will be removed at your 2 week follow-up appointment. Showering: You may shower 5 days from the day of surgery as long as the incision is no longer draining. You may shower with the michelle exposed. Let soapy water run over the michelle and pat them dry. Do not scrub or soak the incision. Things To Watch For: * Drainage from the incision site that occurs more than one week after your surgery. * Increased redness at the incision site. * Fever above 102 degrees Fahrenheit. * Unusual chest pain or shortness of breath. * Call [facility] at with any of the above problems Follow-Up Visit: Follow-up with Dr. Ray's PA (Allen Berman) 2-3 weeks after your day of surgery. He will remove your michelle and answer any questions. If you have any additional questions or concerns, Dr Ray is usually in the office at the same time and will be available An appointment was probably scheduled when you signed-up for surgery in the office. If you have any questions call Office Instructions: More detailed instructions as well as Frequently Asked Questions were provided in a folder by our office when you signed-up for surgery. Please review these instructions when you get home. If you have any further questions or concerns, please feel free to call the office at [phone] Pending Studies at Discharge: No Stand-Alone Forms: [facility], Pain - Opioid Pain Management, Smoking Cessation Medications and DC Order Prescriptions: New oxycodone 5 mg Tablet 5 mg PO Q6 PRN (Reason: pain) Qty: 30 0RF Xarelto 10 mg Tablet 10 mg PO DAILY Qty: 14 0RF cefadroxil 500 mg capsule 500 mg PO BID 10 Days Qty: 20 0RF Continued flecainide 50 mg tablet 50 mg PO Q12H Qty: 180 3RF metoprolol succinate 25 mg tablet extended release 24 hr 25 mg PO QAM Qty: 90 3RF estradiol [Yuvafem] 10 mcg tablet 10 mcg vaginal 2XWK Qty: 24 4RF venlafaxine 37.5 mg capsule,extended release 24hr 37.5 mg PO QAM levothyroxine 175 mcg tablet 175 mcg PO 3XWK Rx Instructions: 175 mcg PO 3 days a week ; levothyroxine 150 mcg tablet 150 mcg PO 4XWK Rx Instructions: 150 mcg PO 4 x week ; venlafaxine 75 mg Tablet 75 mg PO QAM valsartan [Diovan] 80 mg Tablet 80 mg PO QAM acetaminophen 500 mg Tablet 1,000 mg PO TID diphenhydramine HCl [Benadryl] 25 mg Capsule 25 mg PO HS PRN (Reason: Sleep) Held Xarelto 20 mg tablet 20 mg PO QAM Qty: 90 3RF Hold Instructions: Resume on 06/04/23. Take 10 for two weeks than may restart back on 20 mg Krames/Other Patient Handouts: Knee Replacement Total Dc Admission Data Admit Date/Time: 05/19/23 09:32 Attending Provider: Allen Ray Admit Provider: Allen Ray Primary Care Provider: Urvashi Torres Other Interventions: Discharge Summary Assessment (RN) Last Done: 05/20/23 09:44
[2023-05-24] MEDS ORDERED: LEVOTHYROXINE SODIUM 175 MCG TABLET PO SCH (09:00)
== END 2023-05-20 10:15 | disposition home health service (06) ==
LOC: PACUINP 06:33 → ASU 06:33 → 3W 14:35
DX: M17.12 Unilateral primary osteoarthritis, left knee; Z85.850 Personal history of malignant neoplasm of thyroid; E03.9 Hypothyroidism, unspecified; Z79.899 Other long term (current) drug therapy; Z79.890 Hormone replacement therapy; M65.9 Synovitis and tenosynovitis, unspecified; I10 Essential (primary) hypertension; I48.0 Paroxysmal atrial fibrillation; Z79.01 Long term (current) use of anticoagulants